=== PATIENT | female | born 1945 | race Caucasian/White ===

== ENCOUNTER 2022-10-08 16:08 | Inpatient (IN) ==
[2022-10-08 16:50] LABS: iSTAT Creatinine 1.2 mg/dl (0.6-1.3); iSTAT Hemoglobin 10.9 g/dl (12.0-16.0); iSTAT Ionized Calcium 1.16 mmol/l (1.12-1.32); iSTAT Potassium 3.5 mmol/L (3.3-5.0)
[2022-10-08 17:06] LABS: Hematocrit (blood only) 30.4 % (37.0-47.0); Hemoglobin 10.3 g/dl (12.0-16.0); Mean Corpuscular Hemoglobin 28.6 pg (25.0-34.0); Mean Corpuscular Hgb Conc 33.9 g/dL (32.0-36.0); Mean Corpuscular Volume 84.4 fL (80.0-100.0); Platelet Count 306 K/uL (130-400); RDW Coefficient of Variation 17.6 % (11.5-14.5); White Blood Count 11.94 K/ul (4.8-10.8)
[2022-10-08 17:17] LABS: Albumin Globulin Ratio 0.7 (0.9-2); Albumin Level 3.3 gm/dl (3.4-5.0); BUN Creatinine Ratio 21.7 (10-20); Bilirubin,Total 0.6 mg/dl (0.2-1.0); Calcium 8.7 mg/dl (8.6-10.3); Creatinine Clr Calc Pharmacy 39.2 ml/min; Est GFR (African American) 49.8 ml/min; Globulin 4.5 gm/dl (2.5-4.0); Magnesium 1.7 mg/dl (1.7-2.4); Potassium 3.5 mmol/L (3.5-5.1); Total Protein 7.8 gm/dl (6.0-8.3)
[2022-10-08 17:23] LABS: Troponin I High Sensitivity 16.9 pg/ml (0-14)
[2022-10-08 17:28] LABS: Partial Thromboplastin Ratio 0.8; Partial Thromboplastin Time 22.8 Seconds (21.0-31.0)
--- NOTE | 2022-10-08 17:38 | Emergency Department Note ---
Impression & Plan Right hand weakness Admit to the [facility] [place] ED Provider Note NAME: JOSE ANDRES AGE: 77 SEX: F ARRIVES VIA: Ambulance INFORMANT: Patient ED PROVIDER(S): Kati Pollard DO CHIEF COMPLAINT: Right arm weakness PLAN: Disposition: Admit to the [facility] [place] Condition: Fair MEDICAL DECISION MAKING: This is a 77-year-old female patient from [facility] who presents to the emergency department with right arm weakness. The patient states that her symptoms started yesterday during lunch. Laboratory studies reveal baseline anemia. The patient was found to be hyponatremic with a sodium of 128. CT scan of the brain and CTA of the brain and neck were unremarkable. Patient will require admission to the hospital for further stroke work-up and gentle rehydration. [facility]. Triage Nursing notes reviewed and agree with them. Vital Signs: reviewed and remarkable for hypertension Differential diagnosis: Acute CVA, TIA, brachial plexopathy ER treatment provided: IV normal saline hydration Diagnostics interpreted by me: ECG: Normal sinus rhythm at a rate of 76 with PVCs. There is a right bundle branch block. There is no ST segment segment elevation or signs of ischemia. Cardiac Monitoring: Normal sinus rhythm at a rate of 80 Laboratory studies: See below Imaging studies: As per radiology CT brain: See report CTA of the head: See report CTA of the neck: See report HPI: 77/F arrives for evaluation of right arm weakness. Patient explains that she noticed her right arm was weak yesterday as she was trying to eat lunch and was unable to coordinate her fork. The staff at the nursing facility became concerned today when they noticed that she was unable to eat. They sent her to the hospital for evaluation. PAST MEDICAL HISTORY:See PAST SURGICAL HISTORY:See Below FAMILY HISTORY:See Below SOCIAL HISTORY:See Below HOME MEDICATIONS:See list ALLERGIES:None VITALS:See Below PHYSICAL EXAMINATION: HEENT: Head - normocephalic and atraumatic. Pupils are equal, round, and reactive to light. Extraocular eye muscles are intact and sclera are anicteric. Ears - bilaterally patent canals with noninjected tympanic membranes and no evidence of hemotympanum. Nose - moist nasal mucosa without discharge. Mouth - moist buccal mucosa. Oropharynx is nonerythematous and there is no tonsillar exudate or edema noted. Neck: Supple; no cervical lymphadenopathy or JVD Heart: Regular rate and rhythm. There is a normal S1 and S2 with no murmurs, clicks, or gallops appreciated. Lungs: Clear to auscultation bilaterally with no wheezes, rales, or rhonchi. Abdomen: Soft, completely nontender, nondistended, with good bowel sounds. There are no palpable pulsatile masses or hepatosplenomegaly. There is no guarding, rigidity, or rebound noted. Extremities: No evidence of cyanosis, clubbing, or edema. There are easily palpable peripheral pulses. Neuro:The patient is awake and alert, oriented to day, time, and place. Muscle strength 5/5 in the left arm and leg. Patient is unable to wood heel finisher with her right hand. She seems to have normal strength within the right shoulder but muscle strength in the right elbow is 3/5. There are no cerebellar signs. ED COURSE: Times/Reassessments: 1620 patient was evaluated in room B5. A complete history and physical was performed. An order was placed for continuous cardiac monitoring. The patient was in a normal sinus rhythm at a rate of 72 Twelve-lead EKG was obtained. The patient will go for CT scan of the brain and CTA of the head and neck. Patient was started on IV normal saline drip. I discussed the case with the [facility] Hospitalist. Kati Pollard DO Past Med/Surg History Medical History (Updated 10/10/22 @ 10:58 by aKti Pollard DO) Acute kidney failure Acute metabolic acidosis Acute respiratory failure Alzheimers disease Anemia Atherosclerotic heart disease of [place] coronary artery without angina pectoris Cellulitis and abscess of right lower extremity DJD (degenerative joint disease), lumbosacral Dysphagia Encephalopathy Exotropia Hyperlipidemia Hypomagnesemia Muscle weakness Partial intestinal obstruction, unspecified as to cause Polyosteoarthritis, unspecified Primary hypertension Sepsis Spondylolisthesis of lumbosacral region Strabismus Type 2 diabetes mellitus UTI (urinary tract infection) Vitamin D deficiency Surgical History (Updated 08/02/22 @ 10:28 by Marie Donis RN) History of appendectomy History of hysterectomy Social History Smoking Status: Never smoker Hx Alcohol Use: No Hx Substance Use: No Preferred Language: Greek Communication Ability: Impaired Quality Control Operator Required: No Beliefs That Will Affect Care: None Current Living Situation: Assisted Feels Safe at Home: Yes Safety Concerns: Feels Safe At This Time Assistive Devices: Walker and Wheelchair Allergies Allergies Allergy/AdvReac Type Severity Reaction Status Date / Time No Known Allergies Allergy Verified 08/02/22 09:38 Home Meds Home Medications Medication Instructions Recorded Confirmed Lactobacillus comb 1 cap PO AC 08/02/22 10/08/22 [id number] 300 million cell-250 mg capsule (Probiotic and Acidophilus) acetaminophen 325 mg tablet 325 mg PO Q4H PRN Pain 08/02/22 10/08/22 amlodipine 5 mg tablet 5 mg PO DAILY 08/02/22 10/08/22 ammonium lactate 12 % topical cream 1 applic topical BID 08/02/22 10/08/22 amoxicillin 875 mg-potassium 1 tab PO BID 08/02/22 10/08/22 clavulanate 125 mg tablet aspirin 81 mg tablet 81 mg PO QAM 08/02/22 10/08/22 bisacodyl 10 mg rectal suppository 10 mg MO DAILY PRN Constipation 08/02/22 10/08/22 (Dulcolax (bisacodyl)) calcium acetate 667 mg tablet 667 mg PO QAM 08/02/22 10/08/22 cholecalciferol (vitamin D3) 25 25 mcg PO QAM 08/02/22 10/08/22 mcg (1,000 unit) capsule (Vitamin D3) cyanocobalamin (vitamin B-12) 500 500 mcg PO QAM 08/02/22 10/08/22 mcg tablet (Vitamin B-12) diclofenac sodium 1 % topical gel 2 g topical QID PRN Pain 08/02/22 10/08/22 ferrous sulfate 325 mg (65 mg 325 mg PO DAILY 08/02/22 10/08/22 iron) tablet gabapentin 100 mg capsule 100 mg PO QAM 08/02/22 10/08/22 gabapentin 100 mg capsule 200 mg PO HS 08/02/22 10/08/22 guaifenesin 100 mg/5 mL oral 200 mg PO Q4H PRN Cough 08/02/22 10/08/22 liquid (Tussin Mucus-Chest Congestion) magnesium hydroxide 400 mg/5 mL 30 ml PO DAILY PRN No bowel 08/02/22 10/08/22 oral suspension (Milk of Magnesia) movement in 3 days sodium phosphates 19 gram-7 118 ml MO DAILY PRN Constipation 08/02/22 10/08/22 gram/118 mL enema (Fleet Enema) famotidine 20 mg tablet 20 mg PO BID 10/08/22 10/08/22 glipizide 5 mg tablet, extended 5 mg PO QAM 10/08/22 10/08/22 release 24 hr ipratropium 0.5 mg-albuterol 3 mg 3 ml inhalation Q4H PRN short of 10/08/22 10/08/22 (2.5 mg base)/3 mL nebulization breath soln metformin 500 mg tablet 500 mg PO BID 10/08/22 10/08/22 ondansetron HCl 4 mg tablet 4 mg PO Q6H PRN nausea 10/08/22 10/08/22 Results & Data (ED) Vital Signs Vital Signs - 24 hr 10/08/22 16:08 10/08/22 17:21 10/08/22 17:22 Temperature 36.9 C Temperature Source Oral Pulse Rate 76 77 78 Pulse Rate from SpO2 Sensor 39 L Pulse Rhythm Regular Pulse Strength Normal Respiratory Rate 35 H 37 H Respiratory Effort / Characteristics Non-Labored Spontaneous Respiratory Depth Normal Respiratory Pattern Regular Blood Pressure 128/70 Blood Pressure Mean 89 Blood Pressure Position Lying Pulse Oximetry 100 100 Oxygen Delivery Method Room Air Sepsis Recent Fever Within 48 Hours No Sepsis New/Unexplained Change in Mental Status No Sepsis Action Taken by Nursing No Action Required 10/08/22 17:30 10/08/22 17:40 10/08/22 17:50 Temperature Temperature Source Pulse Rate 76 75 75 Pulse Rate from SpO2 Sensor 44 L 39 L 54 L Pulse Rhythm Pulse Strength Respiratory Rate 32 H 34 H 36 H Respiratory Effort / Characteristics Respiratory Depth Respiratory Pattern Blood Pressure Blood Pressure Mean Blood Pressure Position Pulse Oximetry 100 99 98 Oxygen Delivery Method Sepsis Recent Fever Within 48 Hours Sepsis New/Unexplained Change in Mental Status Sepsis Action Taken by Nursing 10/08/22 18:00 10/08/22 18:10 10/08/22 18:20 Temperature Temperature Source Pulse Rate 77 76 80 Pulse Rate from SpO2 Sensor 64 73 64 Pulse Rhythm Pulse Strength Respiratory Rate 29 H 34 H 20 Respiratory Effort / Characteristics Respiratory Depth Respiratory Pattern Blood Pressure Blood Pressure Mean Blood Pressure Position Pulse Oximetry 95 99 95 Oxygen Delivery Method Sepsis Recent Fever Within 48 Hours Sepsis New/Unexplained Change in Mental Status Sepsis Action Taken by Nursing 10/08/22 18:21 10/08/22 18:21 10/08/22 18:30 Temperature Temperature Source Pulse Rate 83 Pulse Rate from SpO2 Sensor Pulse Rhythm Pulse Strength Respiratory Rate 16 Respiratory Effort / Characteristics Respiratory Depth Respiratory Pattern Blood Pressure 130/90 133/68 Blood Pressure Mean 103 89 Blood Pressure Position Pulse Oximetry 97 Oxygen Delivery Method Sepsis Recent Fever Within 48 Hours Sepsis New/Unexplained Change in Mental Status Sepsis Action Taken by Nursing 10/08/22 18:30 10/08/22 18:53 10/08/22 19:00 Temperature Temperature Source Pulse Rate 76 79 78 Pulse Rate from SpO2 Sensor 62 Pulse Rhythm Pulse Strength Respiratory Rate 23 25 H 31 H Respiratory Effort / Characteristics Respiratory Depth Respiratory Pattern Blood Pressure Blood Pressure Mean Blood Pressure Position Pulse Oximetry 99 Oxygen Delivery Method Sepsis Recent Fever Within 48 Hours Sepsis New/Unexplained Change in Mental Status Sepsis Action Taken by Nursing 10/08/22 21:26 Temperature Temperature Source Pulse Rate 82 Pulse Rate from SpO2 Sensor Pulse Rhythm Pulse Strength Respiratory Rate Respiratory Effort / Characteristics Respiratory Depth Respiratory Pattern Blood Pressure Blood Pressure Mean Blood Pressure Position Pulse Oximetry Oxygen Delivery Method Sepsis Recent Fever Within 48 Hours Sepsis New/Unexplained Change in Mental Status Sepsis Action Taken by Nursing Laboratory Data 10/08/22 16:30 10/08/22 16:30 Lab Results 10/08/22 10/08/22 10/08/22 Range/Units 16:30 16:30 16:30 WBC 11.94 H (4.8-10.8) K/ul RBC 3.60 L (4.20-5.40) M/uL Hgb 10.3 L (12.0-16.0) g/dl POC Hgb (12.0-16.0) g/dl Hct 30.4 L (37.0-47.0) % POC Hct (37-47) % MCV 84.4 (80.0-100.0) fL MCH 28.6 (25.0-34.0) pg MCHC 33.9 (32.0-36.0) g/dL RDW Std Deviation 54.0 H (36.4-46.3) fL RDW Coeff of Valeri 17.6 H (11.5-14.5) % Plt Count 306 (130-400) K/uL MPV 10.0 (9.4-12.4) fL Immature Gran % (Auto) 9.1 % Neut % (Auto) 63.7 % Lymph % (Auto) 11.7 % Garza % (Auto) 14.2 % Eos % (Auto) 1.0 % Baso % (Auto) 0.3 % Neut # (Auto) 7.59 H (1.40-6.50) K/uL Lymph # (Auto) 1.40 (1.2-3.4) K/uL Garza # (Auto) 1.70 H (0.11-0.59) K/uL Eos # (Auto) 0.12 (0-0.50) K/uL Baso # (Auto) 0.04 (0-0.2) K/uL Immature Gran # (Auto) 1.09 H (0.01-0.20) K/uL Ovalocytes 1+ Echinocytes 1+ Acanthocytes (Spur) 1+ PT 11.0 (9.0-12.0) Seconds INR 1.0 (0.9-1.1) APTT 22.8 (21.0-31.0) Seconds PTT Ratio 0.8 POC Sodium (135-144) mmol/L Sodium 128 L (136-145) mmol/L POC Potassium (3.3-5.0) mmol/L Potassium 3.5 (3.5-5.1) mmol/L POC Chloride (101-112) mmol/L Chloride 97 L (98-107) mmol/L Carbon Dioxide 22 (21-32) mmol/L POC Total CO2 (24-31) mmol/L Anion Gap 9 (3-11) POC Anion Gap (16-25) mmol/L POC BUN (7-18) mg/dl BUN 26 H (6-23) mg/dl Creatinine 1.20 (0.6-1.2) mg/dl POC Creatinine (0.6-1.3) mg/dl Est Cr Clr Drug Dosing 39.2 ml/min Est GFR ( Amer) 49.8 ml/min Est GFR (Non-Af Amer) 43.0 ml/min BUN/Creatinine Ratio 21.7 H (10-20) Glucose 109 H (70-99(Fasting)) mg/dl POC Glucose (other) (70-99) mg/dl Calcium 8.7 (8.6-10.3) mg/dl POC Ioniz Calcium Jada (1.12-1.32) mmol/l Magnesium 1.7 (1.7-2.4) mg/dl Total Bilirubin 0.6 (0.2-1.0) mg/dl AST 15 (13-39) U/L ALT 11 (7-52) U/L Alkaline Phosphatase 69 (34-104) U/L Troponin I High Sens 16.9 H (0-14) pg/ml Total Protein 7.8 (6.0-8.3) gm/dl Albumin 3.3 L (3.4-5.0) gm/dl Globulin 4.5 H (2.5-4.0) gm/dl Albumin/Globulin Ratio 0.7 L (0.9-2) SARS-CoV-2, RNA, NAAT (NEGATIVE) Blood Type Antibody Screen 10/08/22 10/08/22 10/08/22 Range/Units 16:37 17:09 20:21 WBC (4.8-10.8) K/ul RBC (4.20-5.40) M/uL Hgb (12.0-16.0) g/dl POC Hgb 10.9 L (12.0-16.0) g/dl Hct (37.0-47.0) % POC Hct 32 L (37-47) % MCV (80.0-100.0) fL MCH (25.0-34.0) pg MCHC (32.0-36.0) g/dL RDW Std Deviation (36.4-46.3) fL RDW Coeff of Valeri (11.5-14.5) % Plt Count (130-400) K/uL MPV (9.4-12.4) fL Immature Gran % (Auto) % Neut % (Auto) % Lymph % (Auto) % Garza % (Auto) % Eos % (Auto) % Baso % (Auto) % Neut # (Auto) (1.40-6.50) K/uL Lymph # (Auto) (1.2-3.4) K/uL Garza # (Auto) (0.11-0.59) K/uL Eos # (Auto) (0-0.50) K/uL Baso # (Auto) (0-0.2) K/uL Immature Gran # (Auto) (0.01-0.20) K/uL Ovalocytes Echinocytes Acanthocytes (Spur) PT (9.0-12.0) Seconds INR (0.9-1.1) APTT (21.0-31.0) Seconds PTT Ratio POC Sodium 131 L (135-144) mmol/L Sodium (136-145) mmol/L POC Potassium 3.5 (3.3-5.0) mmol/L Potassium (3.5-5.1) mmol/L POC Chloride 97 L (101-112) mmol/L Chloride (98-107) mmol/L Carbon Dioxide (21-32) mmol/L POC Total CO2 24 (24-31) mmol/L Anion Gap (3-11) POC Anion Gap 13.0 L (16-25) mmol/L POC BUN 27 H (7-18) mg/dl BUN (6-23) mg/dl Creatinine (0.6-1.2) mg/dl POC Creatinine 1.2 (0.6-1.3) mg/dl Est Cr Clr Drug Dosing ml/min Est GFR ( Amer) ml/min Est GFR (Non-Af Amer) ml/min BUN/Creatinine Ratio (10-20) Glucose (70-99(Fasting)) mg/dl POC Glucose (other) 120 H (70-99) mg/dl Calcium (8.6-10.3) mg/dl POC Ioniz Calcium Jada 1.16 (1.12-1.32) mmol/l Magnesium (1.7-2.4) mg/dl Total Bilirubin (0.2-1.0) mg/dl AST (13-39) U/L ALT (7-52) U/L Alkaline Phosphatase (34-104) U/L Troponin I High Sens (0-14) pg/ml Total Protein (6.0-8.3) gm/dl Albumin (3.4-5.0) gm/dl Globulin (2.5-4.0) gm/dl Albumin/Globulin Ratio (0.9-2) SARS-CoV-2, RNA, NAAT NEGATIVE (NEGATIVE) Blood Type A Positive Antibody Screen NEGATIVE Administered Medications Amlodipine Besylate (Amlodipine Besylate 5 Mg Tab) 5 mg PO DAILY JOSR Stop: 11/08/22 08:59 Last Admin: 10/10/22 08:12 Dose: 5 mg Documented By: Admin: 10/09/22 09:19 Dose: 5 mg Documented By: SARAH Amoxicillin/Clavulanate Potassium (Amoxicillin/Clavulanate 875 Mg Tab) 1 tab PO BID [facility] Stop: 10/19/22 08:59 Last Admin: 10/10/22 08:14 Dose: 1 tab Documented By: Admin: 10/09/22 20:55 Dose: 1 tab Documented By: Admin: 10/09/22 09:19 Dose: 1 tab Documented By: SARAH Aspirin (Aspirin 81 Mg Ectab) 81 mg PO [facility] Stop: 11/08/22 08:59 Last Admin: 10/10/22 08:13 Dose: 81 mg Documented By: Admin: 10/09/22 09:20 Dose: 81 mg Documented By: SARAH Calcium Acetate (Calcium Acetate 667 Mg Cap/Tab) 667 mg PO [facility] Stop: 11/08/22 08:59 Last Admin: 10/10/22 08:13 Dose: 667 mg Documented By: Admin: 10/09/22 09:19 Dose: 667 mg Documented By: SARAH Clopidogrel Bisulfate (Clopidogrel Bisulfate 75 Mg Tab) 75 mg PO [facility] Stop: 11/08/22 08:59 Last Admin: 10/10/22 08:13 Dose: 75 mg Documented By: Admin: 10/09/22 09:19 Dose: 75 mg Documented By: SARAH Cyanocobalamin (Cyanocobalamin (B-12) 500 Mcg Tablet) 500 mcg PO [facility] Stop: 11/08/22 08:59 Last Admin: 10/10/22 08:13 Dose: 500 mcg Documented By: Admin: 10/09/22 09:20 Dose: 500 mcg Documented By: SARAH Famotidine (Famotidine 20 Mg Tab) 20 mg PO BID [facility] Stop: 11/08/22 08:59 Last Admin: 10/10/22 08:16 Dose: 20 mg Documented By: Admin: 10/09/22 20:56 Dose: 20 mg Documented By: Admin: 10/09/22 09:19 Dose: 20 mg Documented By: SARAH Ferrous Sulfate (Ferrous Sulfate 325 Mg Tab) 325 mg PO DAILY [facility] Stop: 11/08/22 08:59 Last Admin: 05/24/23 08:13 Dose: 325 mg Documented By: Admin: 10/09/22 09:19 Dose: 325 mg Documented By: SARAH Gabapentin (Gabapentin 100 Mg Cap) 200 mg PO HS JOSR Stop: 11/08/22 20:59 Last Admin: 10/09/22 20:57 Dose: 200 mg Documented By: CP Gabapentin (Gabapentin 100 Mg Cap) 100 mg PO QAM JOSR Stop: 11/08/22 08:59 Last Admin: 10/10/22 08:14 Dose: 100 mg Documented By: Admin: 10/09/22 09:20 Dose: 100 mg Documented By: SARAH Heparin Sodium (Porcine) (Heparin Sod 5,000 Unit/0.5 Ml Vial) 5,000 units SQ Q12 JOSR Stop: 11/08/22 20:59 Last Admin: 10/10/22 08:14 Dose: 5,000 units Documented By: Admin: 10/09/22 20:57 Dose: 5,000 units Documented By: IRIS Lactic Acid (Ammonium Lactate 12% Lotion 225 Gm Btl) 1 gm EXT BID JOSR Stop: 11/08/22 08:59 Last Admin: 10/10/22 08:16 Dose: 1 gm Documented By: Admin: 10/09/22 20:54 Dose: 1 gm Documented By: Admin: 10/09/22 09:18 Dose: 1 gm Documented By: SARAH Lactobacillus Acidophilus (Advanced Probiotic 1250 Mg Capsule) 2 cap PO AC [facility] Stop: 11/08/22 07:29 Last Admin: 10/10/22 08:12 Dose: 2 cap Documented By: Admin: 10/09/22 17:13 Dose: Not Given Documented By: Admin: 10/09/22 12:38 Dose: 2 cap Documented By: Admin: 10/09/22 07:31 Dose: 2 cap Documented By: SARAH Vitamin D (Cholecalciferol 1,000 Units 25 Mcg Tab) 1,000 units PO QAM [facility] Stop: 11/08/22 08:59 Last Admin: 10/10/22 08:14 Dose: 1,000 units Documented By: Admin: 10/10/22 08:13 Dose: 1,000 units Documented By: Admin: 10/09/22 09:19 Dose: 1,000 units Documented By: NMS Discontinued Medications Gadobutrol (Gadobutrol 65ml Vial) 7 ml IV ONCE ONE Stop: 10/09/22 02:15 Last Admin: 10/09/22 02:14 Dose: 7 ml Documented By: EMMY Sodium Chloride (Nss) 500 mls @ 999 mls/hr IV .Q31M ONE Stop: 10/08/22 20:21 Last Infusion: 10/08/22 21:16 Dose: 0 mls/hr Documented By: Admin: 10/08/22 20:19 Dose: 999 mls/hr Documented By: DENTURE PACKER Sodium Chloride (Nss 1000ml) 1,000 mls @ 80 mls/hr IV .[id number] JOSR Stop: 10/09/22 12:51 Last Infusion: 10/09/22 12:09 Dose: 0 mls/hr Documented By: Admin: 10/09/22 01:12 Dose: 80 mls/hr Documented By: STANTON Magnesium Sulfate/Dextrose (Magnesium Sulfate / D5w) 1 gm in 100 mls @ 50 mls/hr IV ONE ONE Stop: 10/09/22 10:21 Last Infusion: 10/09/22 11:11 Dose: 0 mls/hr Documented By: Admin: 10/09/22 09:18 Dose: 50 mls/hr Documented By: SARAH Sodium Chloride (Nss) 500 mls @ 50 mls/hr IV .Q10H ONE Stop: 10/10/22 02:12 Last Infusion: 10/10/22 03:22 Dose: 0 mls/hr Documented By: Admin: 10/09/22 17:13 Dose: 50 mls/hr Documented By: MELONIE Ioversol (Optiray 320 500ml) 114 ml IV ONCE ONE Stop: 10/08/22 18:52 Last Admin: 10/08/22 18:52 Dose: 114 ml Documented By: ROCHELLE Potassium Chloride (Potassium Chloride Crtab 20 Meq Tabcr) 40 meq PO ONE ONE Stop: 10/09/22 08:07 Last Admin: 10/09/22 09:20 Dose: 40 meq Documented By: SARAH Imaging Data Radiologist's Impression: Head CT 10/08/22 16:44 Exam(s): CT HEAD Without Contrast EXAM: CT Head Without Intravenous Contrast CLINICAL HISTORY: Reason for exam: neuro deficit, acute stroke suspected. TECHNIQUE: Axial computed tomography images of the head/brain without intravenous contrast. CTDI is 31.3 mGy and DLP is 512.02 mGy-cm. Automated exposure control was utilized for the study. A dose lowering technique was utilized adhering to the principles of ALARA. COMPARISON: No relevant prior studies available. FINDINGS: Brain: No hemorrhage. No apparent acute cortical infarct. No mass lesion or midline shift. Involutional changes with small vessel disease. Ventricles: No hydrocephalus. Bones/joints: No acute fracture. Soft tissues: Unremarkable. Sinuses: Mucosal thickening in the bilateral maxillary sinuses. Fluid level in the sphenoid and left maxillary sinuses. Mastoid air cells: No mastoid effusion. Orbits: Unremarkable as visualized. IMPRESSION: No acute intracranial process. MRI is more sensitive for ischemia if clinically warranted. Electronically signed by: Carmen Costello M.D. 10/08/22 19:23 PM Head CTA 10/08/22 16:44 Exam(s): CTA HEAD With Contrast IV Amt: 114ml optiray 320 EXAM: CT Angiography Head With Intravenous Contrast CLINICAL HISTORY: Reason for exam: neuro deficit, acute stroke suspected. TECHNIQUE: Axial computed tomographic angiography images of the head with intravenous contrast. CTDI is 31.3 mGy and DLP is 512.02 mGy-cm. Automated exposure control was utilized for the study. A dose lowering technique was utilized adhering to the principles of ALARA. MIP reconstructed images were created and reviewed. CONTRAST: Patient received 114ml optiray 320 of IV contrast COMPARISON: No relevant prior studies available. FINDINGS: Diffuse atherosclerotic changes. Right internal carotid artery: Internal carotid is patent with no significant stenosis. No aneurysm. Right anterior cerebral artery: No occlusion or significant stenosis. No aneurysm. Right middle cerebral artery: No occlusion or significant stenosis. No aneurysm. Right posterior cerebral artery: No occlusion or significant stenosis. No aneurysm. Right vertebral artery: No significant stenosis. No occlusion. Left internal carotid artery: Internal carotid is patent with no significant stenosis. No aneurysm. Left anterior cerebral artery: No occlusion or significant stenosis. No aneurysm. Left middle cerebral artery: No occlusion or significant stenosis. No aneurysm. Left posterior cerebral artery: No occlusion. Some stenosis identified.. No aneurysm. Left vertebral artery: Unremarkable as visualized. Basilar artery: No occlusion or significant stenosis. No aneurysm. Sinuses: Sinus disease as previously reported. IMPRESSION: No essential occlusions related to the [place]. Electronically signed by: Carmen Costello M.D. 10/08/22 19:32 PM Neck CTA 10/08/22 16:44 Exam(s): CTA NECK With Contrast IV Amt: 114ml optiray 320 EXAM: CT Angiography Neck With Intravenous Contrast CLINICAL HISTORY: Reason for exam: neuro deficit, acute stroke suspected. TECHNIQUE: Routine carotid CT angiography protocol was performed with intravenous contrast. NASCET criteria using the distal ICAs for comparison were used for evaluation of stenoses. CTDI is 12.85 mGy and DLP is 409.96 mGy-cm. Automated exposure control was utilized for the study. A dose lowering technique was utilized adhering to the principles of ALARA. MIP reconstructed images were created and reviewed. CONTRAST: Patient received 114ml optiray 320 of IV contrast COMPARISON: None. FINDINGS: VASCULATURE: Right common carotid artery: No significant stenosis. No dissection or occlusion. Right internal carotid artery: Internal carotid is patent with no significant stenosis. No aneurysm. Right vertebral artery: No significant stenosis. No occlusion. Left common carotid artery: No significant stenosis. No occlusion. Left internal carotid artery: Internal carotid is patent with no significant stenosis. No aneurysm. Left vertebral artery: Unremarkable. No occlusion or significant stenosis. No dissection. NECK: Bones/joints: No acute fracture. Sinuses: Sinus disease as previously described. Thyroid: Small low-attenuation focus in left lobe of the thyroid gland. Lung apices: Horner of markings or spiculated opacity measuring 5 mm in the left lung apex. CAROTID STENOSIS REFERENCE USING NASCET CRITERIA: % ICA stenosis = (1 - narrowest ICA diameter/diameter of distal cervical ICA) x 100. Mild - <50% stenosis. Moderate - 50-69% stenosis. Severe - 70-94% stenosis. Near occlusion - 95-99% stenosis. Occluded - 100% stenosis. IMPRESSION: No occlusion or high-grade stenosis. Electronically signed by: Carmen Costello M.D. 10/08/22 19:37 PM Discharge Plan Visit Data Chief Complaint: Neuro Symptoms/Deficit Stated Complaint: RIGHT HAND TROUBLES ED Provider: Kati Pollard Discharge Problem: Right hand weakness Patient Disposition: Admitted As Inpatient Discharge Instructions Interventions: ED Discharge Assessment Last Done: 10/09/22 00:21
[2022-10-08 18:04] LABS: Acanthocytes 1+; Basophils # (auto) 0.04 K/uL (0-0.2); Basophils % (auto) 0.3 %; Echinocytes 1+; Eosinophils # (auto) 0.12 K/uL (0-0.50); Immature Granulocytes # (auto) 1.09 K/uL (0.01-0.20); Immature Granulocytes % (auto) 9.1 %; Lymphocytes % (auto) 11.7 %; Monocytes % (auto) 14.2 %; Neutrophils # (auto) 7.59 K/uL (1.40-6.50); Neutrophils % (auto) 63.7 %; Ovalocytes 1+
[2022-10-08] MEDS ORDERED: OPTIRAY 320 500ml IV ONE (18:51)
--- NOTE | 2022-10-08 19:24 | CT Scan Report ---
Exam(s): CT HEAD Without Contrast EXAM: CT Head Without Intravenous Contrast CLINICAL HISTORY: Reason for exam: neuro deficit, acute stroke suspected. TECHNIQUE: Axial computed tomography images of the head/brain without intravenous contrast. CTDI is 31.3 mGy and DLP is 512.02 mGy-cm. Automated exposure control was utilized for the study. A dose lowering technique was utilized adhering to the principles of ALARA. COMPARISON: No relevant prior studies available. FINDINGS: Brain: No hemorrhage. No apparent acute cortical infarct. No mass lesion or midline shift. Involutional changes with small vessel disease. Ventricles: No hydrocephalus. Bones/joints: No acute fracture. Soft tissues: Unremarkable. Sinuses: Mucosal thickening in the bilateral maxillary sinuses. Fluid level in the sphenoid and left maxillary sinuses. Mastoid air cells: No mastoid effusion. Orbits: Unremarkable as visualized. IMPRESSION: No acute intracranial process. MRI is more sensitive for ischemia if clinically warranted. Electronically signed by: Carmen Costello M.D. 10/08/22 19:23 PM
--- NOTE | 2022-10-08 19:33 | CT Scan Report ---
Exam(s): CTA HEAD With Contrast IV Amt: 114ml optiray 320 EXAM: CT Angiography Head With Intravenous Contrast CLINICAL HISTORY: Reason for exam: neuro deficit, acute stroke suspected. TECHNIQUE: Axial computed tomographic angiography images of the head with intravenous contrast. CTDI is 31.3 mGy and DLP is 512.02 mGy-cm. Automated exposure control was utilized for the study. A dose lowering technique was utilized adhering to the principles of ALARA. MIP reconstructed images were created and reviewed. CONTRAST: Patient received 114ml optiray 320 of IV contrast COMPARISON: No relevant prior studies available. FINDINGS: Diffuse atherosclerotic changes. Right internal carotid artery: Internal carotid is patent with no significant stenosis. No aneurysm. Right anterior cerebral artery: No occlusion or significant stenosis. No aneurysm. Right middle cerebral artery: No occlusion or significant stenosis. No aneurysm. Right posterior cerebral artery: No occlusion or significant stenosis. No aneurysm. Right vertebral artery: No significant stenosis. No occlusion. Left internal carotid artery: Internal carotid is patent with no significant stenosis. No aneurysm. Left anterior cerebral artery: No occlusion or significant stenosis. No aneurysm. Left middle cerebral artery: No occlusion or significant stenosis. No aneurysm. Left posterior cerebral artery: No occlusion. Some stenosis identified.. No aneurysm. Left vertebral artery: Unremarkable as visualized. Basilar artery: No occlusion or significant stenosis. No aneurysm. Sinuses: Sinus disease as previously reported. IMPRESSION: No essential occlusions related to the [place]. Electronically signed by: Carmen Costello M.D. 10/08/22 19:32 PM
--- NOTE | 2022-10-08 19:37 | CT Scan Report ---
Exam(s): CTA NECK With Contrast IV Amt: 114ml optiray 320 EXAM: CT Angiography Neck With Intravenous Contrast CLINICAL HISTORY: Reason for exam: neuro deficit, acute stroke suspected. TECHNIQUE: Routine carotid CT angiography protocol was performed with intravenous contrast. NASCET criteria using the distal ICAs for comparison were used for evaluation of stenoses. CTDI is 12.85 mGy and DLP is 409.96 mGy-cm. Automated exposure control was utilized for the study. A dose lowering technique was utilized adhering to the principles of ALARA. MIP reconstructed images were created and reviewed. CONTRAST: Patient received 114ml optiray 320 of IV contrast COMPARISON: None. FINDINGS: VASCULATURE: Right common carotid artery: No significant stenosis. No dissection or occlusion. Right internal carotid artery: Internal carotid is patent with no significant stenosis. No aneurysm. Right vertebral artery: No significant stenosis. No occlusion. Left common carotid artery: No significant stenosis. No occlusion. Left internal carotid artery: Internal carotid is patent with no significant stenosis. No aneurysm. Left vertebral artery: Unremarkable. No occlusion or significant stenosis. No dissection. NECK: Bones/joints: No acute fracture. Sinuses: Sinus disease as previously described. Thyroid: Small low-attenuation focus in left lobe of the thyroid gland. Lung apices: [place] of markings or spiculated opacity measuring 5 mm in the left lung apex. CAROTID STENOSIS REFERENCE USING NASCET CRITERIA: % ICA stenosis = (1 - narrowest ICA diameter/diameter of distal cervical ICA) x 100. Mild - <50% stenosis. Moderate - 50-69% stenosis. Severe - 70-94% stenosis. Near occlusion - 95-99% stenosis. Occluded - 100% stenosis. IMPRESSION: No occlusion or high-grade stenosis. Electronically signed by: Carmen Costello M.D. 10/08/22 19:37 PM
[2022-10-08] MEDS ORDERED: SODIUM CHLORIDE 0.9% 500 ML IV ONE (19:51)
[2022-10-09] MEDS ORDERED: PHARMACIST DISCHARGE MED REC CONSULT PRN (00:22)
[2022-10-09] MEDS ORDERED: SODIUM CHLORIDE 0.9% 1000ML 1,000 ML IV SCH (00:22)
[2022-10-09] MEDS ORDERED: ACETAMINOPHEN 325 MG TAB PO PRN (00:22)
[2022-10-09] MEDS ORDERED: NITROGLYCERIN SL 0.4 MG/TAB TAB SL PRN (00:22)
[2022-10-09] MEDS ORDERED: POLYETHYLENE (MIRALAX) 17 GM PACK PO PRN (00:22)
[2022-10-09] MEDS ORDERED: bisacodyL 10 MG SUPP PR PRN (00:22)
[2022-10-09] MEDS ORDERED: ALBUT/IPRATROP 3MG/0.5MG NEB 3 ML VIAL INH PRN (00:22)
[2022-10-09] MEDS ORDERED: MAGNESIUM HYDROXIDE SUSP 30 ML UDC PO PRN (00:22)
[2022-10-09] MEDS ORDERED: DICLOFENAC SOD 1% GEL 100 GM TUBE EXT PRN (00:22)
[2022-10-09] MEDS ORDERED: guaiFENesin SUGAR FREE 200 MG/10 ML UDC PO PRN (00:39)
--- NOTE | 2022-10-09 01:08 | History and Physical Report ---
DATE OF ADMISSION: 10/08/2022. CHIEF COMPLAINT: Right hand weakness. HISTORY OF PRESENT ILLNESS: A 77-year-old female with past medical history significant for type 2 diabetes, history of ovarian cancer, hyperlipidemia, hypomagnesemia, hypokalemia, hypertension, CAD, right bundle-branch block, vitamin B12 deficiency, slow transit constipation, degenerative disk disease, osteoarthritis, neuromuscular weakness, moderate late-onset Alzheimer's dementia without behavioral disturbance, myelodysplastic disease, anemia of chronic kidney disease, history of MRSA infection, strabismus, esotropia of right eye, history of COVID-19, who lives at [facility] and presents with right hand weakness since yesterday night and today she could not use a spoon to eat. As per [facility], it looks like last well known was yesterday night. Was brought in because of the right hand weakness. The patient is alert and oriented to name and place, could tell her date of , denies any headache. No blurred visions. Denies any earache, no runny nose, no sore throat, no difficulty swallowing. No cough, no fevers, no chest pain. She had some chest pain earlier, but that is resolved now. No shortness of breath, no nausea, no abdominal pain. Normal bowel and bladder movements. She says that she ambulates with a walker. She eats soft food. Tried to reach out to her daughter and also [facility], but not able to at this time ALLERGIES: No known drug allergies. PAST MEDICAL HISTORY: As mentioned above. PAST SURGICAL HISTORY: Appendectomy, total abdominal hysterectomy with removal of tubes. MEDICATIONS: The patient is on Tylenol 325 mg p.o. q. 4 hours p.r.n., amlodipine 5 mg p.o. daily, ammonium lactate 1 application topical b.i.d., Augmentin 1 tablet p.o. b.i.d., aspirin 81 mg p.o. a.m., Dulcolax 10 mg per rectum daily p.r.n., calcium acetate 667 mg p.o. a.m., vitamin D 25 mcg p.o. daily, vitamin B12 500 mcg p.o. daily, diclofenac sodium 2 g topical q.i.d. p.r.n., famotidine 20 mg p.o. b.i.d., ferrous sulfate 325 mg p.o. daily, gabapentin 200 mg p.o. at bedtime, gabapentin 100 mg p.o. a.m., glipizide 5 mg p.o. a.m., guaifenesin 200 mg p.o. q. 4 hours p.r.n., DuoNebs q. 4 hours p.r.n., lactobacillus 1 tablet p.o. before meals, metformin 500 mg p.o. b.i.d., Zofran 4 mg p.o. q. 6 hours p.r.n., Fleet enema daily p.r.n. FAMILY HISTORY: Significant for mother had cancer; father had diabetes; father had heart disorder; mother had heart disorder. SOCIAL HISTORY: No smoking, no alcohol, no drug use. REVIEW OF SYSTEMS: As per HPI. Rest of the review of systems is negative. PHYSICAL EXAMINATION: GENERAL: The patient is of moderate build, not in acute distress. VITAL SIGNS: Temperature 36.9, pulse 82, respiratory rate 25, blood pressure 133/68, oxygen 99% on room air. HEENT: Pupils equal, round and reactive to light. No facial droop. Oral mucosa moist. NECK: No JVD, no neck masses. CARDIOVASCULAR: S1 and S2 heard. Regular rate and rhythm. No murmur, no gallop. RESPIRATORY SYSTEM: Normal AP diameter. No accessory muscle use. No wheezing or crackles. ABDOMEN: Soft, bowel sounds present, nontender, no distention. CENTRAL NERVOUS SYSTEM: Alert and oriented to name and place. Could tell her date of . Speech is clear. No facial droop. Hand digester capper is less, decreased on the right hand digester capper. Difficult to lift her right upper extremity and can lift and hold lower extremity. could not do coordination of movements. Sensation is intact. EXTREMITIES: No edema, no erythema. LABORATORY DATA: WBC 11.9, hemoglobin 10.3, hematocrit 30.4, platelets 306. PT 11, INR 1, APTT 22.8. Sodium 128, potassium 3.5, chloride 97, CO2 of 22, BUN 26, creatinine of 1.2, serum glucose 109, calcium 8.7, magnesium 1.7, total bilirubin 0.6, AST 15, ALT 11, alkaline phosphatase 69. Troponin I high sensitivity 16.9. SARS-CoV-2 rapid test negative. IMAGING DATA: CTA neck, no occlusion or high-grade stenosis. CTA head, no essential occlusion related to the [place]. CTA of the head without contrast, no acute findings. EKG: Sinus rhythm with frequent PVCs at the rate of 76, no previous EKGs available, left axis deviation, right bundle-branch block. ASSESSMENT AND PLAN: This is a 77-year-old female who presents with right hand weakness. 1. Right hand weakness since yesterday. Initial workup with CT scan of the head and CTA of the head and neck unremarkable. We will do a full stroke workup with MRI, echo, speech evaluation, PT/OT, and neuro evaluation in the a.m. The patient to be on clear liquid diet until seen by speech. The patient is already on aspirin. Will follow the lipid profile and add Plavix for now. Await neuro input. Closely monitor in the tele floor. 2. Hyponatremia: Sodium of 128, getting gentle fluids. Follow the repeat labs. Follow serum osmolality, urine osmolality, serum sodium, and urine sodium levels. Consult neurology in the a.m. 3. Recent bronchitis and urinary tract infection: Recently started on Augmentin. It looks like she did not tolerate the doxycycline in the [facility]. Doxy caused some GI upset, so she was placed on Augmentin. Augmentin started on 10/06/2022, end date is 10/13/2022, which will be continued. 4. History of moderate late-onset Alzheimer's dementia without behavioral disturbances. Monitor for any delirium. 5. Type 2 diabetes: Hold her home metformin and glipizide. Will place on insulin sliding scale. Follow the blood sugars. 6. History of myelodysplastic disease: Following with hematology/oncology. Continue ferrous sulfate. 7. Chronic kidney disease stage III: Creatinine of 1.2, will follow the labs. 8. Anemia of chronic kidney disease: Presents with hemoglobin of 10.3. Follows with hem/onc. Continue oral iron and B12 supplements. 9. Deep venous thrombosis prophylaxis: Sequential compression devices for now. DISPOSITION: Closely monitor in the tele floor. Level 1 full code. Expect to discharge home and follow with family doctor. Job ID: [id number] [facility]
[2022-10-09] MEDS ORDERED: GADOBUTROL 65ML VIAL IV ONE (02:14)
--- NOTE | 2022-10-09 03:05 | Magnetic Resonance Report ---
Exam(s): MRI HEAD W/WO Contrast IV Amt: 7cc gadavist EXAM: MR Head Without and With Intravenous Contrast CLINICAL HISTORY: Reason for exam: stroke like symptoms. TECHNIQUE: Magnetic resonance images of the head/brain without and with intravenous contrast in multiple planes. CONTRAST: Patient received 7cc gadavist of IV contrast COMPARISON: 10/08/2022. FINDINGS: Brain: Moderate to severe generalized brain atrophy. Scattered areas of increased signal within the deep white matter compatible with microangiopathic white matter disease. No restricted diffusion abnormality to suggest acute stroke. No intracranial hemorrhage. Ventricles: Nonspecific ventriculomegaly. Bones/joints: Unremarkable. Soft tissues: Unremarkable. Normal enhancement of intracranial structures following contrast administration with no distinct intracranial lesion. Sinuses: Mucosal thickening involving the bilateral maxillary sinuses with air-fluid level on the left and enhancement concerning for acute on chronic sinusitis. Mucosal thickening of bilateral mastoids and frontal sinuses. Mastoid air cells: Unremarkable as visualized. No mastoid effusion. Orbits: Unremarkable as visualized. IMPRESSION: 1. Moderate to severe generalized brain atrophy along with microangiopathic white matter disease. 2. No acute stroke or intracranial hemorrhage. No enhancing intracranial lesions seen. 3. Sequela pansinusitis as described. Electronically signed by: Fatuma Delatorre MD 10/09/22 03:04 AM
[2022-10-09 04:51] LABS: Calcium 7.9 mg/dl (8.6-10.3); Potassium 3.1 mmol/L (3.5-5.1)
[2022-10-09 04:57] LABS: BUN Creatinine Ratio 20.9 (10-20); Chol HDL Ratio 2.6 (0-5); Creatinine Clr Calc Pharmacy 51.7 ml/min; Est GFR (African American) 69.5 ml/min
[2022-10-09 05:09] LABS: Basophils # (auto) 0.04 K/uL (0-0.2); Basophils % (auto) 0.3 %; Echinocytes 2+; Eosinophils # (auto) 0.11 K/uL (0-0.50); Eosinophils % (auto) 0.9 %; Hematocrit (blood only) 27.5 % (37.0-47.0); Hemoglobin 9.3 g/dl (12.0-16.0); Immature Granulocytes # (auto) 0.73 K/uL (0.01-0.20); Immature Granulocytes % (auto) 5.7 %; Lymphocytes # (auto) 0.89 K/uL (1.2-3.4); Lymphocytes % (auto) 6.9 %; Mean Corpuscular Hemoglobin 28.1 pg (25.0-34.0); Mean Corpuscular Hgb Conc 33.8 g/dL (32.0-36.0); Mean Corpuscular Volume 83.1 fL (80.0-100.0); Mean Platelet Volume 9.8 fL (9.4-12.4); Monocytes # (auto) 1.47 K/uL (0.11-0.59); Monocytes % (auto) 11.5 %; Neutrophils # (auto) 9.59 K/uL (1.40-6.50); Neutrophils % (auto) 74.7 %; Platelet Count 238 K/uL (130-400); Platelet Estimate Normal (Normal); RDW Coefficient of Variation 17.4 % (11.5-14.5); RDW Standard Deviation 52.6 fL (36.4-46.3); Red Blood Count 3.31 M/uL (4.20-5.40); White Blood Count 12.83 K/ul (4.8-10.8)
[2022-10-09] MEDS: ADVANCED PROBIOTIC 1250 MG CAPSULE PO SCH ×3 (07:31→17:13)
[2022-10-09 08:00] LABS: Estimated Average Glucose 171 mg/dl; Hemoglobin A1C 7.6 % (4.5-5.6)
[2022-10-09] MEDS ORDERED: POTASSIUM CHLORIDE CRTAB 20 MEQ TABCR PO ONE (08:06)
[2022-10-09] MEDS ORDERED: MAGNESIUM SULFATE / D5W 1 GM/100 ML BAG IV ONE (08:22)
--- NOTE | 2022-10-09 09:05 | Electrocardiogram Report ---
Test Reason : Blood Pressure : / mmHG Vent. Rate : 076 BPM Atrial Rate : 076 BPM P-R Int : 180 ms QRS Dur : 148 ms QT Int : 448 ms P-R-T Axes : 011 -74 006 degrees QTc Int : 504 ms Sinus rhythm with frequent Premature ventricular complexes Left axis deviation Right bundle branch block Inferior infarct , age undetermined Abnormal ECG No previous ECGs available Confirmed by Kyler Bro ([id number]) on 10/09/2022 9:05:08 AM Referred By: REFERRED SELF Confirmed By:Kyler Bro
[2022-10-09] MEDS: AMMONIUM LACTATE 12% LOTION 225 GM BTL EXT SCH ×2 (09:18→20:54)
[2022-10-09] MEDS: CHOLECALCIFEROL 1,000 UNITS 25 MCG TAB PO SCH (09:19)
[2022-10-09] MEDS: FERROUS SULFATE 325 MG TAB PO SCH (09:19)
[2022-10-09] MEDS: CALCIUM ACETATE 667 MG CAP/TAB PO SCH (09:19)
[2022-10-09] MEDS: CLOPIDOGREL BISULFATE 75 MG TAB PO SCH (09:19)
[2022-10-09] MEDS: FAMOTIDINE 20 MG TAB PO SCH ×2 (09:19→20:56)
[2022-10-09] MEDS: amLODIPine BESYLATE 5 MG TAB PO SCH (09:19)
[2022-10-09] MEDS: AMOXICILLIN/CLAVULANATE 875 MG TAB PO SCH ×2 (09:19→20:55)
[2022-10-09] MEDS: CYANOCOBALAMIN (B-12) 500 MCG TABLET PO SCH (09:20)
[2022-10-09] MEDS: GABAPENTIN 100 MG CAP PO SCH (09:20)
[2022-10-09] MEDS: ASPIRIN 81 MG ECTAB PO SCH (09:20)
--- NOTE | 2022-10-09 09:57 | Neurology Consultation ---
Date of Consultation October 09, 2022 Assessment & Plan (1) Acute radial nerve palsy of left upper extremity: Presentation and exam consistent with an isolated L radial nerve palsy. This is not a stroke. We do not recommend any further testing or change in medication. She will benefit from OT and a neutral wrist splint. EMG in 6 weeks if symptoms do not improve to help guide prognosis. Telehealth Consultation Telehealth Information Telehealth Information: I performed this visit using a real-time telehealth connection between my location and the patients location ([facility]). After conne cting through interactive tele-video, patient was identified by name and date of and/or wristband check.Patient (or authorized healthcare motor vehicle field representative) was informed that this was a telemedicine visit and it was being conducted confidentially over secure lines. My office door was closed and no one else was present in the room with me.Patient (or authorized healthcare motor vehicle field representative) provided consent to proceed with the visit, expressed an understanding of privacy and security of the telemedicine visit, and gave permission to have a hospital motor vehicle field representative in the room in order to assist with the visit and to conduct portions of the visit, as needed. I informed the patient (or authorized healthcare motor vehicle field representative) that I reviewed their record and presented the opportunity for them to ask any questions regarding the visit today. The patient agreed to participate. History of Present Illness Reason for Consultation: Left hand weakness Requesting Physician: Dr. Herrera Attending Physician: Jerrell Herrera MD History of Present Illness Laxmi Barbosa is a 77 yo F presenting with left hand weakness she woke up with yesterday morning. She denies any associated weakness of the arm, no change in speech or vision. At baseline uses a wheelchair at her retirement. She denies sleeping in a different position or location than her bed. Allergies Allergy/AdvReac Type Severity Reaction Status Date / Time No Known Allergies Allergy Verified 08/02/22 09:38 Home Medications Medication Instructions Recorded Confirmed Type Lactobacillus comb 1 cap PO AC 08/02/22 10/08/22 History [id number] 300 million cell-250 mg capsule (Probiotic and Acidophilus) acetaminophen 325 mg tablet 325 mg PO Q4H PRN Pain 08/02/22 10/08/22 History amlodipine 5 mg tablet 5 mg PO DAILY 08/02/22 10/08/22 History ammonium lactate 12 % topical cream 1 applic topical BID 08/02/22 10/08/22 History amoxicillin 875 mg-potassium 1 tab PO BID 08/02/22 10/08/22 History clavulanate 125 mg tablet aspirin 81 mg tablet 81 mg PO QAM 08/02/22 10/08/22 History bisacodyl 10 mg rectal suppository 10 mg MS DAILY PRN Constipation 08/02/22 10/08/22 History (Dulcolax (bisacodyl)) calcium acetate 667 mg tablet 667 mg PO QAM 08/02/22 10/08/22 History cholecalciferol (vitamin D3) 25 25 mcg PO QAM 08/02/22 10/08/22 History mcg (1,000 unit) capsule (Vitamin D3) cyanocobalamin (vitamin B-12) 500 500 mcg PO QAM 08/02/22 10/08/22 History mcg tablet (Vitamin B-12) diclofenac sodium 1 % topical gel 2 g topical QID PRN Pain 08/02/22 10/08/22 History ferrous sulfate 325 mg (65 mg 325 mg PO DAILY 08/02/22 10/08/22 History iron) tablet gabapentin 100 mg capsule 100 mg PO QAM 08/02/22 10/08/22 History gabapentin 100 mg capsule 200 mg PO HS 08/02/22 10/08/22 History guaifenesin 100 mg/5 mL oral 200 mg PO Q4H PRN Cough 08/02/22 10/08/22 History liquid (Tussin Mucus-Chest Congestion) magnesium hydroxide 400 mg/5 mL 30 ml PO DAILY PRN No bowel 08/02/22 10/08/22 History oral suspension (Milk of Magnesia) movement in 3 days sodium phosphates 19 gram-7 118 ml MS DAILY PRN Constipation 08/02/22 10/08/22 History gram/118 mL enema (Fleet Enema) famotidine 20 mg tablet 20 mg PO BID 10/08/22 10/08/22 History glipizide 5 mg tablet, extended 5 mg PO QAM 10/08/22 10/08/22 History release 24 hr ipratropium 0.5 mg-albuterol 3 mg 3 ml inhalation Q4H PRN short of 10/08/22 10/08/22 History (2.5 mg base)/3 mL nebulization breath soln metformin 500 mg tablet 500 mg PO BID 10/08/22 10/08/22 History ondansetron HCl 4 mg tablet 4 mg PO Q6H PRN nausea 10/08/22 10/08/22 History Patient History Medical History (Updated 10/09/22 @ 10:05 by Dawson Galaviz MD) Acute kidney failure Acute metabolic acidosis Acute respiratory failure Alzheimers disease Anemia Atherosclerotic heart disease of [place] coronary artery without angina pectoris Cellulitis and abscess of right lower extremity DJD (degenerative joint disease), lumbosacral Dysphagia Encephalopathy Exotropia Hyperlipidemia Hypomagnesemia Muscle weakness Partial intestinal obstruction, unspecified as to cause Polyosteoarthritis, unspecified Primary hypertension Sepsis Spondylolisthesis of lumbosacral region Strabismus Type 2 diabetes mellitus UTI (urinary tract infection) Vitamin D deficiency Surgical History (Updated 08/02/22 @ 10:28 by Marie Donis RN) History of appendectomy History of hysterectomy Social History Smoking Status: Never smoker Hx Alcohol Use: No Hx Substance Use: No Preferred Language: Latvian Kindergarten Assistant Required: No Beliefs That Will Affect Care: None Current Living Situation: Long-Term Feels Safe at Home: Yes Safety Concerns: Feels Safe At This Time Assistive Devices: Walker Review of Systems +left hand weakness Physical Exam Neurological Examination: Mental Status: Awake and alert. Fluent, non-dysarthric. Comprehension intact. Affect appropriate. Cranial Nerves: II: pupils 3/3 to 2/2 VII: Facial expression symmetric VIII: Hearing intact to voice Motor: Strength was symmetric and antigravity throughout. left hand and wrist extensor weakness only. Pronator drift was absent. There were no abnormal movements. Sensory: Sensation to light touch was intact. Results & Data Vital Signs (Past 12 Hours) Vital Signs Pulse Pulse Resp BP BP Pulse Ox Pulse Ox 10/09/22 09:00 84 29 H 95 10/09/22 09:00 149/85 H 10/09/22 08:30 83 27 H 95 10/09/22 08:30 136/68 10/09/22 08:00 77 33 H 96 10/09/22 08:00 123/63 10/09/22 07:30 82 36 H 93 10/09/22 07:30 130/64 10/09/22 07:00 94 10/09/22 07:00 130/77 10/09/22 07:42 94 10/09/22 07:27 86 10/09/22 06:00 86 28 H 118/63 93 10/09/22 05:00 87 30 H 130/68 94 10/09/22 04:30 89 30 H 113/63 94 10/09/22 03:30 89 28 H 127/66 95 10/09/22 01:00 89 28 H 139/85 95 10/09/22 00:30 87 30 H 142/73 H 96 10/09/22 03:57 90 16 127/66 95 10/09/22 00:00 89 24 150/75 H 96 10/08/22 23:54 92 H 24 136/71 96 10/09/22 00:12 86 O2 Del Method O2 Del Method 10/09/22 09:00 Room Air 10/09/22 09:00 10/09/22 08:30 Room Air 10/09/22 08:30 10/09/22 08:00 Room Air 10/09/22 08:00 10/09/22 07:30 Room Air 10/09/22 07:30 10/09/22 07:00 Room Air 10/09/22 07:00 10/09/22 07:42 Room Air 10/09/22 07:27 10/09/22 06:00 10/09/22 05:00 10/09/22 04:30 10/09/22 03:30 10/09/22 01:00 10/09/22 00:30 10/09/22 03:57 Room Air 10/09/22 00:00 10/08/22 23:54 10/09/22 00:12 Laboratory Results Abnormal lab results 10/08/22 10/08/22 10/08/22 Range/Units 16:30 16:30 16:37 WBC 11.94 H (4.8-10.8) K/ul RBC 3.60 L (4.20-5.40) M/uL Hgb 10.3 L (12.0-16.0) g/dl POC Hgb 10.9 L (12.0-16.0) g/dl Hct 30.4 L (37.0-47.0) % POC Hct 32 L (37-47) % RDW Std Deviation 54.0 H (36.4-46.3) fL RDW Coeff of Valeri 17.6 H (11.5-14.5) % Neut # (Auto) 7.59 H (1.40-6.50) K/uL Lymph # (Auto) (1.2-3.4) K/uL [place] # (Auto) 1.70 H (0.11-0.59) K/uL Immature Gran # (Auto) 1.09 H (0.01-0.20) K/uL POC Sodium 131 L (135-144) mmol/L Sodium 128 L (136-145) mmol/L Potassium (3.5-5.1) mmol/L POC Chloride 97 L (101-112) mmol/L Chloride 97 L (98-107) mmol/L Carbon Dioxide (21-32) mmol/L POC Anion Gap 13.0 L (16-25) mmol/L POC BUN 27 H (7-18) mg/dl BUN 26 H (6-23) mg/dl BUN/Creatinine Ratio 21.7 H (10-20) Glucose 109 H (70-99(Fasting)) mg/dl POC Glucose (other) 120 H (70-99) mg/dl Hemoglobin A1c (4.5-5.6) % Osmolality (280-300) mOsm/kg Calcium (8.6-10.3) mg/dl Troponin I High Sens 16.9 H (0-14) pg/ml Albumin 3.3 L (3.4-5.0) gm/dl Globulin 4.5 H (2.5-4.0) gm/dl Albumin/Globulin Ratio 0.7 L (0.9-2) 10/09/22 10/09/22 10/09/22 Range/Units 04:06 04:06 04:06 WBC 12.83 H (4.8-10.8) K/ul RBC 3.31 L (4.20-5.40) M/uL Hgb 9.3 L (12.0-16.0) g/dl POC Hgb (12.0-16.0) g/dl Hct 27.5 L (37.0-47.0) % POC Hct (37-47) % RDW Std Deviation 52.6 H (36.4-46.3) fL RDW Coeff of [place]eri 17.4 H (11.5-14.5) % Neut # (Auto) 9.59 H (1.40-6.50) K/uL Lymph # (Auto) 0.89 L (1.2-3.4) K/uL [place] # (Auto) 1.47 H (0.11-0.59) K/uL Immature Gran # (Auto) 0.73 H (0.01-0.20) K/uL POC Sodium (135-144) mmol/L Sodium 131 L (136-145) mmol/L Potassium 3.1 L (3.5-5.1) mmol/L POC Chloride (101-112) mmol/L Chloride (98-107) mmol/L Carbon Dioxide 18 L (21-32) mmol/L POC Anion Gap (16-25) mmol/L POC BUN (7-18) mg/dl BUN (6-23) mg/dl BUN/Creatinine Ratio 20.9 H (10-20) Glucose 176 H (70-99(Fasting)) mg/dl POC Glucose (other) (70-99) mg/dl Hemoglobin A1c 7.6 H (4.5-5.6) % Osmolality (280-300) mOsm/kg Calcium 7.9 L (8.6-10.3) mg/dl Troponin I High Sens (0-14) pg/ml Albumin (3.4-5.0) gm/dl Globulin (2.5-4.0) gm/dl Albumin/Globulin Ratio (0.9-2) / Range/Units 04:06 WBC (4.8-10.8) K/ul RBC (4.20-5.40) M/uL Hgb (12.0-16.0) g/dl POC Hgb (12.0-16.0) g/dl Hct (37.0-47.0) % POC Hct (37-47) % RDW Std Deviation (36.4-46.3) fL RDW Coeff of Valeri (11.5-14.5) % Neut # (Auto) (1.40-6.50) K/uL Lymph # (Auto) (1.2-3.4) K/uL [place] # (Auto) (0.11-0.59) K/uL Immature Gran # (Auto) (0.01-0.20) K/uL POC Sodium (135-144) mmol/L Sodium (136-145) mmol/L Potassium (3.5-5.1) mmol/L POC Chloride (101-112) mmol/L Chloride (98-107) mmol/L Carbon Dioxide (21-32) mmol/L POC Anion Gap (16-25) mmol/L POC BUN (7-18) mg/dl BUN (6-23) mg/dl BUN/Creatinine Ratio (10-20) Glucose (70-99(Fasting)) mg/dl POC Glucose (other) (70-99) mg/dl Hemoglobin A1c (4.5-5.6) % Osmolality 279 L (280-300) mOsm/kg Calcium (8.6-10.3) mg/dl Troponin I High Sens (0-14) pg/ml Albumin (3.4-5.0) gm/dl Globulin (2.5-4.0) gm/dl Albumin/Globulin Ratio (0.9-2) Diagnostic Findings MRI brain - Unremarkable CTA head and neck unremarkable
--- NOTE | 2022-10-09 12:24 | Consultation Report ---
NEPHROLOGY CONSULTATION NOTE REASON FOR CONSULTATION: Hyponatremia. HISTORY OF PRESENT ILLNESS: The patient is a 77-year-old female who is a resident of [facility]. She has fairly severe Alzheimer's dementia at baseline as well as multiple other medical p roblems including chronic mild hyponatremia. She had serum sodium anywhere from 132 to 135 as an out patient for a while now. She cannot tell me any history. As per the medical records, she was sent o cuhng from the retirement because of right-handed weakness. The thought was she was having acute str nicole. According to the imaging, it does not appear she has acute stroke. She had a serum sodium of 1 28 on admission. Overnight, she got some IV fluid and with that serum sodium this morning is 131. W e do not have any urine test as of now. The patient's vital signs appear fairly stable. There is no report of having any nausea, vomiting, diarrhea, fever, chills, shortness of breath, or any other sy mptoms. I cannot comment about her fluid intake, nor about her solid food intake. ALLERGIES: None. PAST MEDICAL AND SURGICAL HISTORY: Includes type 2 diabetes, history of ovarian cancer, hyperlipidem ia, history of low magnesium and low potassium, hypertension, coronary artery disease, right bundle b ranch block, moderately severe Alzheimer's dementia, myelodysplastic disease, anemia of chronic disea se, history of MRSA infection, constipation, appendicectomy, total abdominal hysterectomy with bilate ral tubal removal. MEDICATIONS: At home was reviewed in detail and is as per the H and P and the reconciliation list. It does not appear the patient is on any diuretics. FAMILY HISTORY: Negative for renal disease or dialysis. SOCIAL HISTORY: No smoking, no alcohol, no drugs. She is currently in a retirement. REVIEW OF SYSTEMS: Unable to obtain directly from the patient given her dementia. As per the record other than this right sided weakness, there was nothing acute symptom [place]. PHYSICAL EXAMINATION: GENERAL: Elderly white female who appears to be chronically ill. She does have underlying dementia and was not really able to give me any accurate history. VITAL SIGNS: Most recent vital signs include blood pressure 149/85, pulse rate 84, temperature 36.9, 95% on room air. HEENT: Mucous membrane is moist. NECK: Supple. No jugular venous distention. CHEST: Bilateral decreased breath sounds, poor inspiratory effort, limited quality exam. CARDIOVASCULAR: S1 and S2, regular. ABDOMEN: Soft, nontender. EXTREMITIES: Show trace edema. LABORATORY TEST: Shows serum sodium was 128 on admission yesterday, this morning is 131. At [facility], she had serum sodium ranging from 130-135, potassium 3.1, chloride 103, bicarbonate 18, magnesium 1.7. Urine test pending. ASSESSMENT AND PLAN: A 77-year-old female who is a resident of retirement with underlying dementia , now admitted with right sided weakness. I was consulted for acute on chronic hyponatremia. It dilip ears she does have very mild hyponatremia at baseline with a serum sodium ranging from 130-135. On a dmission, serum sodium was 128, which has since improved to 131 with use of normal saline. At this t clau, she is not really eating or drinking anything, so it is reasonable to continue with the normal s trey for the time being. As per the hyponatremia workup, we do need urine sodium, urine creatinine, urine osmolality as well as TSH, BMP can be done once daily at this point given that her current sod ium is pretty much close to her baseline. Free fluid restriction 1200 mL per day. I will continue t o follow the patient. Thank you very much for the consult. Job ID: [id number]
--- NOTE | 2022-10-09 14:59 | Hospitalist Progress Note ---
Date of Service October 09, 2022 Assessment & Plan (1) Acute radial nerve palsy of left upper extremity: Plan: Patient is a 77 yr female who presents with right hand weakness. Right radial nerve palsy of the right upper extremity --MRI Brain:Moderate to severe generalized brain atrophy along with microangiopathic white matter disease. No acute stroke or intracranial hemorrhage. No enhancing intracranial lesions seen. Sequela pansinusitis as described. --Head CTA:No essential occlusions related to the [place] of [place]. --Neck CTA:No occlusion or high-grade stenosis. --CT Head:No acute intracranial process. MRI is more sensitive for ischemia if clinically warranted. --ECHO pending --TSH pending --Appreciate neurology input: Not CVA, Likely right radial nerve palsy Consulted orthotics for right wrist splint Needs follow-up with neurology upon discharge Plan to consider EMG if persistent symptoms after 6 weeks. Acute on Chronic Hyponatremia: Sodium Levels 128>131 Continue gentle IV fluids Appreciate nephrology input Monitor sodium levels Discussed with nephrology: continue gentle IVF as patient has poor oral intake. Hypokalemia Replete electrolytes as needed Monitor Recent bronchitis and UTI Initially started on doxycycline--developed GI upset Started on Augmentin as outpatient on 10/09/22:-- End date 10/13/2022--Continue H/O moderate late-onset Alzheimer's dementia without behavioral disturbances Monitor for delirium Reorient frequently DM II HbA1C: 7.6 Hold home metformin and glipizide Utilize Insulin per protocol for managing diabetes mellitus Monitor blood sugar levels H/O Myelodysplastic disease: Follows with hematology/oncology. Continue ferrous sulfate. CKD III Cr: 1.2>0.91 Monitor renal function Avoid nephrotoxic agents as able Anemia of chronic kidney disease Continue iron, B12 supplements No acute bleeding issues Monitor hemoglobin DVT Px: Heparin SQ CODE STATUS Full code Admission and Anticipated Discharge Date Admission Date: October 08, 2022 Subjective Patient is seen and examined at bedside States having right upper extremity weakness Denies any chest pain, shortness of breath, dizziness, nausea, abdominal pain Was having physical therapy during my encounter Discussed with neurology today. Review of Systems Review of Systems: All systems reviewed & are unremarkable except as noted in Subjective Physical Exam Physical Exam: Physical Exam: Vitals signs as noted above General Appearance:Moderately built and nourished, no apparent distress, Elderly Head: normocephalic, Atraumatic Eyes: normal inspection, EOMI Neck: supple, Trachea midline Respiratory/Chest: Decreased breath sounds, CTA, No accessory muscle use Cardiovascular: S1, S2, No murmur Abdomen/GI:Soft, Non tender, Bowel sounds present Extremities/Musculoskeletal:normal inspection, Trace edema Neurologic/Psych:AAOX3, RUE relatively weak when compared to LUE Skin: normal color, warm Results & Data Results & Data Vital Signs (Past 12 Hours) Vital Signs Temp Pulse Pulse Resp BP BP Pulse Ox 10/09/22 13:01 129/82 10/09/22 13:01 85 20 92 10/09/22 13:00 90 93 10/09/22 12:00 82 94 10/09/22 11:00 77 10/09/22 11:01 77 18 93 10/09/22 11:01 128/63 10/09/22 11:00 78 93 10/09/22 11:35 36.7 C 10/09/22 11:00 10/09/22 09:00 84 29 H 95 10/09/22 09:00 149/85 H 10/09/22 08:30 83 27 H 95 10/09/22 08:30 136/68 10/09/22 08:00 77 33 H 96 10/09/22 08:00 123/63 10/09/22 07:30 82 36 H 93 10/09/22 07:30 130/64 10/09/22 07:00 94 10/09/22 07:00 130/77 10/09/22 07:42 10/09/22 07:27 86 10/09/22 06:00 86 28 H 118/63 93 10/09/22 05:00 87 30 H 130/68 94 10/09/22 04:30 89 30 H 113/63 94 10/09/22 03:30 89 28 H 127/66 95 10/09/22 03:57 90 16 127/66 95 Pulse Ox O2 Del Method O2 Del Method 10/09/22 13:01 10/09/22 13:01 10/09/22 13:00 10/09/22 12:00 Room Air 10/09/22 11:00 10/09/22 11:01 Room Air 10/09/22 11:01 10/09/22 11:00 10/09/22 11:35 10/09/22 11:00 Room Air 10/09/22 09:00 Room Air 10/09/22 09:00 10/09/22 08:30 Room Air 10/09/22 08:30 10/09/22 08:00 Room Air 10/09/22 08:00 10/09/22 07:30 Room Air 10/09/22 07:30 10/09/22 07:00 Room Air 10/09/22 07:00 10/09/22 07:42 94 Room Air 10/09/22 07:27 10/09/22 06:00 10/09/22 05:00 10/09/22 04:30 10/09/22 03:30 10/09/22 03:57 Room Air Laboratory Results Short CBC 10/08/22 10/09/22 Range/Units 16:30 04:06 WBC 11.94 H 12.83 H (4.8-10.8) K/ul Hgb 10.3 L 9.3 L (12.0-16.0) g/dl Hct 30.4 L 27.5 L (37.0-47.0) % Plt Count 306 238 (130-400) K/uL BMP 10/08/22 10/09/22 16:30 04:06 Sodium 128 L 131 L Potassium 3.5 3.1 L Chloride 97 L 103 Carbon Dioxide 22 18 L BUN 26 H 19 Creatinine 1.20 0.91 Glucose 109 H 176 H Calcium 8.7 7.9 L Liver Function 10/08/22 Range/Units 16:30 Total Bilirubin 0.6 (0.2-1.0) mg/dl AST 15 (13-39) U/L ALT 11 (7-52) U/L Alkaline Phosphatase 69 (34-104) U/L Albumin 3.3 L (3.4-5.0) gm/dl
[2022-10-09 15:23] LABS: Creatinine Urine Random 46.6 mg/dl
[2022-10-09] MEDS ORDERED: SODIUM CHLORIDE 0.9% 500 ML IV ONE (16:13)
[2022-10-09] MEDS: HEPARIN SOD 5,000 UNIT/0.5 ML VIAL SQ SCH (20:57)
[2022-10-09] MEDS ORDERED: GABAPENTIN 100 MG CAP PO SCH (21:00)
[2022-10-10 06:28] LABS: BUN Creatinine Ratio 13.1 (10-20); Calcium 8.5 mg/dl (8.6-10.3); Creatinine Clr Calc Pharmacy 47.1 ml/min; Est GFR (African American) 62.8 ml/min; Est GFR (Non-African American) 54.2 ml/min; Magnesium 1.8 mg/dl (1.7-2.4); Potassium 3.6 mmol/L (3.5-5.1)
--- NOTE | 2022-10-10 08:07 | XRay Report ---
XR chest 1V portable CLINICAL HISTORY: Dyspnea TECHNIQUE: Single frontal radiograph of the chest was obtained. Comparison: Comparison is made to CTA head and neck 10/08/2022 FINDINGS: No lines and tubes are seen. Cardiomegaly is noted. The aortic arch is calcified. Right greater than left airspace opacity is seen. Moderate right and small left pleural effusion. IMPRESSION: Moderate right and small left pleural effusion. Bilateral lower lung airspace opacities likely repres ent atelectasis with or without superimposed aspiration/pneumonia. ACT 112: Negative or not required by law. Electronically signed by: Frederick Nazario M.D. 10/10/2022 8:06 AM
[2022-10-10] MEDS: ADVANCED PROBIOTIC 1250 MG CAPSULE PO SCH ×2 (08:12→11:44)
[2022-10-10] MEDS: amLODIPine BESYLATE 5 MG TAB PO SCH (08:12)
[2022-10-10] MEDS: CYANOCOBALAMIN (B-12) 500 MCG TABLET PO SCH (08:13)
[2022-10-10] MEDS: CLOPIDOGREL BISULFATE 75 MG TAB PO SCH (08:13)
[2022-10-10] MEDS: ASPIRIN 81 MG ECTAB PO SCH (08:13)
[2022-10-10] MEDS: FERROUS SULFATE 325 MG TAB PO SCH (08:13)
[2022-10-10] MEDS: CALCIUM ACETATE 667 MG CAP/TAB PO SCH (08:13)
[2022-10-10] MEDS: CHOLECALCIFEROL 1,000 UNITS 25 MCG TAB PO SCH ×2 (08:13→08:14)
[2022-10-10] MEDS: GABAPENTIN 100 MG CAP PO SCH (08:14)
[2022-10-10] MEDS: HEPARIN SOD 5,000 UNIT/0.5 ML VIAL SQ SCH (08:14)
[2022-10-10] MEDS: AMOXICILLIN/CLAVULANATE 875 MG TAB PO SCH (08:14)
[2022-10-10] MEDS: FAMOTIDINE 20 MG TAB PO SCH (08:16)
[2022-10-10] MEDS: AMMONIUM LACTATE 12% LOTION 225 GM BTL EXT SCH (08:16)
[2022-10-10 08:46] LABS: Basophils # (auto) 0.03 K/uL (0-0.2); Basophils % (auto) 0.2 %; Eosinophils # (auto) 0.16 K/uL (0-0.50); Eosinophils % (auto) 1.3 %; Hematocrit (blood only) 28.8 % (37.0-47.0); Hemoglobin 9.5 g/dl (12.0-16.0); Immature Granulocytes # (auto) 0.56 K/uL (0.01-0.20); Immature Granulocytes % (auto) 4.5 %; Lymphocytes # (auto) 0.97 K/uL (1.2-3.4); Lymphocytes % (auto) 7.8 %; Mean Corpuscular Hemoglobin 27.9 pg (25.0-34.0); Mean Corpuscular Volume 84.5 fL (80.0-100.0); Monocytes # (auto) 1.52 K/uL (0.11-0.59); Monocytes % (auto) 12.3 %; Neutrophils # (auto) 9.14 K/uL (1.40-6.50); Neutrophils % (auto) 73.9 %; Platelet Count 361 K/uL (130-400); RDW Coefficient of Variation 17.6 % (11.5-14.5); RDW Standard Deviation 54.8 fL (36.4-46.3); Red Blood Count 3.41 M/uL (4.20-5.40); White Blood Count 12.38 K/ul (4.8-10.8)
[2022-10-10] MEDS ORDERED: POTASSIUM CHLORIDE CRTAB 20 MEQ TABCR PO ONE (08:50)
[2022-10-10] MEDS ORDERED: FUROSEMIDE 40 MG/4 ML VIAL IV SCH (09:00)
--- NOTE | 2022-10-10 13:16 | Hospitalist Progress Note ---
Date of Service October 10, 2022 Assessment & Plan (1) Acute radial nerve palsy of left upper extremity: Plan: Patient is a 77 yr female who presents with right hand weakness. Right radial nerve palsy of the right upper extremity --MRI Brain:Moderate to severe generalized brain atrophy along with microangiopathic white matter disease. No acute stroke or intracranial hemorrhage. No enhancing intracranial lesions seen. Sequela pansinusitis as described. --Head CTA:No essential occlusions related to the [place] of [place]. --Neck CTA:No occlusion or high-grade stenosis. --CT Head:No acute intracranial process. MRI is more sensitive for ischemia if clinically warranted. --ECHO pending --TSH pending --Appreciate neurology input: Not CVA, Likely right radial nerve palsy Consulted orthotics for right wrist splint Needs follow-up with neurology upon discharge Plan to consider EMG if persistent symptoms after 6 weeks. Acute on Chronic Hyponatremia: Sodium Levels 128>131>134 Appreciate nephrology input Monitor sodium levels Bilateral Pleural Effusion Incidental finding on CXR ? Chronic diastolic Heart Failure --ECHO: Mild concentric LVH. Left ventricle wall motion is normal. Left ventricle systolic function is normal. EF 55 to 60%. Grade 1 diastolic dysfunction Denies any dyspnea, chest pain Saturating well on room air Was started on Lasix 40mg daily Advise to follow up with Cardiology as outpatient Hypokalemia Replete electrolytes as needed Monitor Recent bronchitis and UTI Initially started on doxycycline--developed GI upset Started on Augmentin as outpatient on 10/09/22:-- End date 10/13/2022--Continue H/O moderate late-onset Alzheimer's dementia without behavioral disturbances Monitor for delirium Reorient frequently DM II HbA1C: 7.6 Hold home metformin and glipizide Utilize Insulin per protocol for managing diabetes mellitus Monitor blood sugar levels H/O Myelodysplastic disease: Follows with hematology/oncology. Continue ferrous sulfate. CKD III Cr: 1.2>0.91 Monitor renal function Avoid nephrotoxic agents as able Anemia of chronic kidney disease Continue iron, B12 supplements No acute bleeding issues Monitor hemoglobin DVT Px: Heparin SQ CODE STATUS Full code Disposition [facility] Admission and Anticipated Discharge Date Admission Date: October 08, 2022 Subjective Patient is seen and examined at bedside States feeling batter today No new complaints Denies any chest pain, shortness of breath, dizziness, nausea, abdominal pain Plan to discharge to [facility] today Review of Systems Review of Systems: All systems reviewed & are unremarkable except as noted in Subjective Physical Exam Physical Exam: Physical Exam: Vitals signs as noted above General Appearance:Moderately built and nourished, no apparent distress, Elderly Head: normocephalic, Atraumatic Eyes: normal inspection, EOMI Neck: supple, Trachea midline Respiratory/Chest: Decreased breath sounds, CTA, No accessory muscle use Cardiovascular: S1, S2, No murmur Abdomen/GI:Soft, Non tender, Bowel sounds present Extremities/Musculoskeletal:normal inspection, Trace edema Neurologic/Psych:AAOX3, RUE relatively weak when compared to LUE Skin: normal color, warm Results & Data Results & Data Vital Signs (Past 12 Hours) Vital Signs Temp Pulse Pulse Resp BP BP Pulse Ox 10/10/22 12:01 144/89 H 10/10/22 12:01 84 28 H 93 10/10/22 12:00 86 35 H 97 10/10/22 11:43 137/70 10/10/22 08:30 89 29 H 93 10/10/22 07:41 36.9 C 91 H 20 171/83 H 93 10/10/22 04:30 75 37 H 10/10/22 04:20 74 39 H 92 10/10/22 04:10 73 43 H 93 10/10/22 04:00 77 39 H 92 10/10/22 04:00 137/64 10/10/22 03:50 71 35 H 96 10/10/22 03:40 74 35 H 10/10/22 03:30 79 43 H 91 10/10/22 03:20 76 34 H 93 10/10/22 03:10 73 37 H 93 10/10/22 03:00 74 38 H 92 10/10/22 02:50 83 27 H 93 10/10/22 02:40 70 33 H 91 10/10/22 02:30 71 35 H 92 10/10/22 02:20 76 35 H 92 10/10/22 02:10 72 35 H 92 10/10/22 02:00 77 37 H 10/10/22 01:50 78 39 H 93 10/10/22 01:40 75 32 H 92 10/10/22 04:38 36.8 C 10/10/22 01:30 75 39 H 92 10/10/22 01:20 76 33 H 91 10/10/22 01:10 72 36 H 90 O2 Del Method 10/10/22 12:01 10/10/22 12:01 Room Air 10/10/22 12:00 Room Air 10/10/22 11:43 10/10/22 08:30 Room Air 10/10/22 07:41 Room Air 10/10/22 04:30 10/10/22 04:20 10/10/22 04:10 10/10/22 04:00 10/10/22 04:00 10/10/22 03:50 10/10/22 03:40 10/10/22 03:30 10/10/22 03:20 10/10/22 03:10 10/10/22 03:00 10/10/22 02:50 10/10/22 02:40 10/10/22 02:30 10/10/22 02:20 10/10/22 02:10 10/10/22 02:00 10/10/22 01:50 10/10/22 01:40 10/10/22 04:38 10/10/22 01:30 10/10/22 01:20 10/10/22 01:10 Laboratory Results Short CBC 10/10/22 10/10/22 Range/Units 05:47 08:20 WBC Cancelled 12.38 H Hgb Cancelled 9.5 L Hct Cancelled 28.8 L Plt Count Cancelled 361 D BMP 10/10/22 05:47 Sodium 134 L Potassium 3.6 Chloride 107 Carbon Dioxide 19 L BUN 13 Creatinine 0.99 Glucose 91 Calcium 8.5 L
--- NOTE | 2022-10-10 13:37 | Discharge Summary ---
Date of Service October 10, 2022 Admission HPI Per Admitting Provider CHIEF COMPLAINT: Right hand weakness. HISTORY OF PRESENT ILLNESS: A 77-year-old female with past medical history significant for type 2 diabetes, history of ovarian cancer, hyperlipidemia, hypomagnesemia, hypokalemia, hypertension, CAD, right bundle-branch block, vitamin B12 deficiency, slow transit constipation, degenerative disk disease, osteoarthritis, neuromuscular weakness, moderate late-onset Alzheimer's dementia without behavioral disturbance, myelodysplastic disease, anemia of chronic kidney disease, history of MRSA infection, strabismus, esotropia of right eye, history of COVID-19, who lives at [facility] and presents with right hand weakness since yesterday night and today she could not use a spoon to eat. As per alf, it looks like last well known was yesterday night. Was brought in because of the right hand weakness. The patient is alert and oriented to name and place, could tell her date of , denies any headache. No blurred visions. Denies any earache, no runny nose, no sore throat, no difficulty swallowing. No cough, no fevers, no chest pain. She had some chest pain earlier, but that is resolved now. No shortness of breath, no nausea, no abdominal pain. Normal bowel and bladder movements. She says that she ambulates with a walker. She eats soft food. Tried to reach out to her daughter and also [facility], but not able to at this time Admission Exam Per Admitting Provider PHYSICAL EXAMINATION: GENERAL: The patient is of moderate build, not in acute distress. VITAL SIGNS: Temperature 36.9, pulse 82, respiratory rate 25, blood pressure 133/68, oxygen 99% on room air. HEENT: Pupils equal, round and reactive to light. No facial droop. Oral mucosa moist. NECK: No JVD, no neck masses. CARDIOVASCULAR: S1 and S2 heard. Regular rate and rhythm. No murmur, no gallop. RESPIRATORY SYSTEM: Normal AP diameter. No accessory muscle use. No wheezing or crackles. ABDOMEN: Soft, bowel sounds present, nontender, no distention. CENTRAL NERVOUS SYSTEM: Alert and oriented to name and place. Could tell her date of . Speech is clear. No facial droop. Hand instructor hairspring is less, decreased on the right hand instructor hairspring. Difficult to lift her right upper extremity and can lift and hold lower extremity. could not do coordination of movements. Sensation is intact. EXTREMITIES: No edema, no erythema. Principal Diagnosis Right radial nerve palsy of the right upper extremity Acute on Chronic Hyponatremia Bilateral pleural effusion Hypokalemia Discharge Data Allergies Allergy/AdvReac Type Severity Reaction Status Date / Time No Known Allergies Allergy Verified 08/02/22 09:38 Consultations 10/08/22 20:07 ED Decision to Admit Stat 10/09/22 08:00 Consult Nephrology Routine Consult Neurology Routine Procedures Performed Laboratory Results WBC 12.38 K/ul (4.8-10.8) H 10/10/22 08:20 RBC 3.41 M/uL (4.20-5.40) L 10/10/22 08:20 Hgb 9.5 g/dl (12.0-16.0) L 10/10/22 08:20 POC Hgb 10.9 g/dl (12.0-16.0) L 10/08/22 16:37 Hct 28.8 % (37.0-47.0) L 10/10/22 08:20 POC Hct 32 % (37-47) L 10/08/22 16:37 MCV 84.5 fL (80.0-100.0) 10/10/22 08:20 MCH 27.9 pg (25.0-34.0) 10/10/22 08:20 MCHC 33.0 g/dL (32.0-36.0) 10/10/22 08:20 RDW Std Deviation 54.8 fL (36.4-46.3) H 10/10/22 08:20 RDW Coeff of Valeri 17.6 % (11.5-14.5) H 10/10/22 08:20 Plt Count 361 K/uL (130-400) D 10/10/22 08:20 MPV 9.0 fL (9.4-12.4) L 10/10/22 08:20 Immature Gran % (Auto) 4.5 % 10/10/22 08:20 Neut % (Auto) 73.9 % 10/10/22 08:20 Lymph % (Auto) 7.8 % 10/10/22 08:20 [place] % (Auto) 12.3 % 10/10/22 08:20 Eos % (Auto) 1.3 % 10/10/22 08:20 Baso % (Auto) 0.2 % 10/10/22 08:20 Neut # (Auto) 9.14 K/uL (1.40-6.50) H 10/10/22 08:20 Lymph # (Auto) 0.97 K/uL (1.2-3.4) L 10/10/22 08:20 [place] # (Auto) 1.52 K/uL (0.11-0.59) H 10/10/22 08:20 Eos # (Auto) 0.16 K/uL (0-0.50) 10/10/22 08:20 Baso # (Auto) 0.03 K/uL (0-0.2) 10/10/22 08:20 Immature Gran # (Auto) 0.56 K/uL (0.01-0.20) H 10/10/22 08:20 Absolute Nucleated RBC Cancelled 10/10/22 05:47 Nucleated RBC % (auto) Cancelled 10/10/22 05:47 Neutrophils % (Manual) Cancelled 10/10/22 05:47 Band Neutrophils % Cancelled 10/10/22 05:47 Lymphocytes % (Manual) Cancelled 10/10/22 05:47 Prolymphocyte % Cancelled 10/10/22 05:47 Reactive Lymphs % (Man) Cancelled 10/10/22 05:47 Monocytes % (Manual) Cancelled 10/10/22 05:47 Eosinophils % (Manual) Cancelled 10/10/22 05:47 Basophils % (Manual) Cancelled 10/10/22 05:47 Metamyelocytes % (Man) Cancelled 10/10/22 05:47 Myelocytes % (Man) Cancelled 10/10/22 05:47 Promyelocytes % (Man) Cancelled 10/10/22 05:47 Blast Cells % (Manual) Cancelled 10/10/22 05:47 Plasma Cell % (Manual) Cancelled 10/10/22 05:47 Other Cells % Cancelled 10/10/22 05:47 Nucleated RBC % Cancelled 10/10/22 05:47 Neutrophils # (Manual) Cancelled 10/10/22 05:47 Band Neutrophils # Cancelled 10/10/22 05:47 Total Absolute Neuts Cancelled 10/10/22 05:47 Lymphocytes # (Manual) Cancelled 10/10/22 05:47 Prolymphocyte # Cancelled 10/10/22 05:47 Reactive Lymphs # Cancelled 10/10/22 05:47 Total Abs Lymphocytes Cancelled 10/10/22 05:47 Monocytes # (Manual) Cancelled 10/10/22 05:47 Eosinophils # (Manual) Cancelled 10/10/22 05:47 Basophils # (Manual) Cancelled 10/10/22 05:47 Metamyelocytes # (Man) Cancelled 10/10/22 05:47 Myelocytes # (Manual) Cancelled 10/10/22 05:47 Promyelocytes # (Man) Cancelled 10/10/22 05:47 Blast Cells # (Man) Cancelled 10/10/22 05:47 Plasma Cell # (Manual) Cancelled 10/10/22 05:47 Other Cells # Cancelled 10/10/22 05:47 Nucleated RBCs # (Man) Cancelled 10/10/22 05:47 Hypersegmented Neuts Cancelled 10/10/22 05:47 Hyposegmented Neuts Cancelled 10/10/22 05:47 Hypogranular Neuts Cancelled 10/10/22 05:47 Large Granular Lymphs Cancelled 10/10/22 05:47 # Lrg Granular Lymphs Cancelled 10/10/22 05:47 Hairy Cells Cancelled 10/10/22 05:47 Smudge Cells Cancelled 10/10/22 05:47 Toxic Granulation Cancelled 10/10/22 05:47 Toxic Vacuolation Cancelled 10/10/22 05:47 Dohle Bodies Cancelled 10/10/22 05:47 Oskar Rods Cancelled 10/10/22 05:47 Platelet Estimate Cancelled 10/10/22 05:47 Hypogranular Platelets Cancelled 10/10/22 05:47 Giant Platelets Cancelled 10/10/22 05:47 Platelet Satelliting Cancelled 10/10/22 05:47 RBC Morphology Cancelled 10/10/22 05:47 Polychromasia Cancelled 10/10/22 05:47 Hypochromasia Cancelled 10/10/22 05:47 Poikilocytosis Cancelled 10/10/22 05:47 Basophilic Stippling Cancelled 10/10/22 05:47 Anisocytosis Cancelled 10/10/22 05:47 Microcytosis Cancelled 10/10/22 05:47 Macrocytosis Cancelled 10/10/22 05:47 Spherocytes Cancelled 10/10/22 05:47 Pappenheimer Bodies Cancelled 10/10/22 05:47 Sickle Cells Cancelled 10/10/22 05:47 Target Cells Cancelled 10/10/22 05:47 Tear Drop Cells Cancelled 10/10/22 05:47 Ovalocytes Cancelled 10/10/22 05:47 Stomatocytes Cancelled 10/10/22 05:47 Mel[place] Bodies Cancelled 10/10/22 05:47 Echinocytes Cancelled 10/10/22 05:47 Acanthocytes (Spur) Cancelled 10/10/22 05:47 Rouleaux Cancelled 10/10/22 05:47 RBC Agglutinates Cancelled 10/10/22 05:47 Schistocytes Cancelled 10/10/22 05:47 Sezary Cell Cancelled 10/10/22 05:47 PT 11.0 Seconds (9.0-12.0) 10/08/22 16:30 INR 1.0 (0.9-1.1) 10/08/22 16:30 APTT 22.8 Seconds (21.0-31.0) 10/08/22 16:30 PTT Ratio 0.8 10/08/22 16:30 POC Sodium 131 mmol/L (135-144) L 10/08/22 16:37 Sodium 134 mmol/L (136-145) L 10/10/22 05:47 POC Potassium 3.5 mmol/L (3.3-5.0) 10/08/22 16:37 Potassium 3.6 mmol/L (3.5-5.1) 10/10/22 05:47 POC Chloride 97 mmol/L (101-112) L 10/08/22 16:37 Chloride 107 mmol/L (98-107) 10/10/22 05:47 Carbon Dioxide 19 mmol/L (21-32) L 10/10/22 05:47 POC Total CO2 24 mmol/L (24-31) 10/08/22 16:37 Anion Gap 8 (3-11) 10/10/22 05:47 POC Anion Gap 13.0 mmol/L (16-25) L 10/08/22 16:37 POC BUN 27 mg/dl (7-18) H 10/08/22 16:37 BUN 13 mg/dl (6-23) 10/10/22 05:47 Creatinine 0.99 mg/dl (0.6-1.2) 10/10/22 05:47 POC Creatinine 1.2 mg/dl (0.6-1.3) 10/08/22 16:37 Est Cr Clr Drug Dosing 47.1 ml/min 10/10/22 05:47 Est GFR ( Amer) 62.8 ml/min 10/10/22 05:47 Est GFR (Non-Af Amer) 54.2 ml/min 10/10/22 05:47 BUN/Creatinine Ratio 13.1 (10-20) 10/10/22 05:47 Glucose 91 mg/dl (70-99(Fasting)) 10/10/22 05:47 POC Glucose 168 mg/dl (70-99) H 10/09/22 16:08 POC Glucose (other) 120 mg/dl (70-99) H 10/08/22 16:37 Estimat Average Glucose 171 mg/dl 10/09/22 04:06 Hemoglobin A1c 7.6 % (4.5-5.6) H 10/09/22 04:06 Osmolality 279 mOsm/kg (280-300) L 10/09/22 04:06 Calcium 8.5 mg/dl (8.6-10.3) L 10/10/22 05:47 POC Ioniz Calcium Jada 1.16 mmol/l (1.12-1.32) 10/08/22 16:37 Magnesium 1.8 mg/dl (1.7-2.4) 10/10/22 05:47 Total Bilirubin 0.6 mg/dl (0.2-1.0) 10/08/22 16:30 AST 15 U/L (13-39) 10/08/22 16:30 ALT 11 U/L (7-52) 10/08/22 16:30 Alkaline Phosphatase 69 U/L (34-104) 10/08/22 16:30 Troponin I High Sens 11.8 pg/ml (0-14) 10/09/22 20:03 Total Protein 7.8 gm/dl (6.0-8.3) 10/08/22 16:30 Albumin 3.3 gm/dl (3.4-5.0) L 10/08/22 16:30 Globulin 4.5 gm/dl (2.5-4.0) H 10/08/22 16:30 Albumin/Globulin Ratio 0.7 (0.9-2) L 10/08/22 16:30 Triglycerides 73 mg/dl (0-150) 10/09/22 04:06 Cholesterol 66 mg/dl (0-200) 10/09/22 04:06 LDL Cholesterol, Calc 26 mg/dl 10/09/22 04:06 VLDL Cholesterol, Calc 15 mg/dl (0-30) 10/09/22 04:06 HDL Cholesterol 25 mg/dl 10/09/22 04:06 Cholesterol/HDL Ratio 2.6 (0-5) 10/09/22 04:06 TSH 1.175 uIu/ml (0.300-4.500) 10/10/22 05:47 Urine Osmolality 372 mOsm/kg (500-800) L 10/09/22 14:09 Ur Random Creatinine 46.6 mg/dl 10/09/22 14:09 Ur Random Sodium 56 mmol/L 10/09/22 14:09 Nasal Screen MRSA (PCR) Positive (Negative) A 10/09/22 12:00 SARS-CoV-2, RNA, NAAT NEGATIVE (NEGATIVE) 10/08/22 20:21 Blood Parasites ID Cancelled 10/10/22 05:47 Blood Type A Positive 10/08/22 17:09 Antibody Screen NEGATIVE 10/08/22 17:[address] 10/08/22 16:44 Exam(s): CT HEAD Without Contrast EXAM: CT Head Without Intravenous Contrast CLINICAL HISTORY: Reason for exam: neuro deficit, acute stroke suspected. TECHNIQUE: Axial computed tomography images of the head/brain without intravenous contrast. CTDI is 31.3 mGy and DLP is 512.02 mGy-cm. Automated exposure control was utilized for the study. A dose lowering technique was utilized adhering to the principles of ALARA. COMPARISON: No relevant prior studies available. FINDINGS: Brain: No hemorrhage. No apparent acute cortical infarct. No mass lesion or midline shift. Involutional changes with small vessel disease. Ventricles: No hydrocephalus. Bones/joints: No acute fracture. Soft tissues: Unremarkable. Sinuses: Mucosal thickening in the bilateral maxillary sinuses. Fluid level in the sphenoid and left maxillary sinuses. Mastoid air cells: No mastoid effusion. Orbits: Unremarkable as visualized. IMPRESSION: No acute intracranial process. MRI is more sensitive for ischemia if clinically warranted. Electronically signed by: Carmen Costello M.D. 10/08/22 19:23 PM Head CTA 10/08/22 16:44 Exam(s): CTA HEAD With Contrast IV Amt: 114ml optiray 320 EXAM: CT Angiography Head With Intravenous Contrast CLINICAL HISTORY: Reason for exam: neuro deficit, acute stroke suspected. TECHNIQUE: Axial computed tomographic angiography images of the head with intravenous contrast. CTDI is 31.3 mGy and DLP is 512.02 mGy-cm. Automated exposure control was utilized for the study. A dose lowering technique was utilized adhering to the principles of ALARA. MIP reconstructed images were created and reviewed. CONTRAST: Patient received 114ml optiray 320 of IV contrast COMPARISON: No relevant prior studies available. FINDINGS: Diffuse atherosclerotic changes. Right internal carotid artery: Internal carotid is patent with no significant stenosis. No aneurysm. Right anterior cerebral artery: No occlusion or significant stenosis. No aneurysm. Right middle cerebral artery: No occlusion or significant stenosis. No aneurysm. Right posterior cerebral artery: No occlusion or significant stenosis. No aneurysm. Right vertebral artery: No significant stenosis. No occlusion. Left internal carotid artery: Internal carotid is patent with no significant stenosis. No aneurysm. Left anterior cerebral artery: No occlusion or significant stenosis. No aneurysm. Left middle cerebral artery: No occlusion or significant stenosis. No aneurysm. Left posterior cerebral artery: No occlusion. Some stenosis identified.. No aneurysm. Left vertebral artery: Unremarkable as visualized. Basilar artery: No occlusion or significant stenosis. No aneurysm. Sinuses: Sinus disease as previously reported. IMPRESSION: No essential occlusions related to the ambler of [place]. Electronically signed by: Carmen Costello M.D. 10/08/22 19:32 PM Neck CTA 10/08/22 16:44 Exam(s): CTA NECK With Contrast IV Amt: 114ml optiray 320 EXAM: CT Angiography Neck With Intravenous Contrast CLINICAL HISTORY: Reason for exam: neuro deficit, acute stroke suspected. TECHNIQUE: Routine carotid CT angiography protocol was performed with intravenous contrast. NASCET criteria using the distal ICAs for comparison were used for evaluation of stenoses. CTDI is 12.85 mGy and DLP is 409.96 mGy-cm. Automated exposure control was utilized for the study. A dose lowering technique was utilized adhering to the principles of ALARA. MIP reconstructed images were created and reviewed. CONTRAST: Patient received 114ml optiray 320 of IV contrast COMPARISON: None. FINDINGS: VASCULATURE: Right common carotid artery: No significant stenosis. No dissection or occlusion. Right internal carotid artery: Internal carotid is patent with no significant stenosis. No aneurysm. Right vertebral artery: No significant stenosis. No occlusion. Left common carotid artery: No significant stenosis. No occlusion. Left internal carotid artery: Internal carotid is patent with no significant stenosis. No aneurysm. Left vertebral artery: Unremarkable. No occlusion or significant stenosis. No dissection. NECK: Bones/joints: No acute fracture. Sinuses: Sinus disease as previously described. Thyroid: Small low-attenuation focus in left lobe of the thyroid gland. Lung apices: [place] of markings or spiculated opacity measuring 5 mm in the left lung apex. CAROTID STENOSIS REFERENCE USING NASCET CRITERIA: % ICA stenosis = (1 - narrowest ICA diameter/diameter of distal cervical ICA) x 100. Mild - <50% stenosis. Moderate - 50-69% stenosis. Severe - 70-94% stenosis. Near occlusion - 95-99% stenosis. Occluded - 100% stenosis. IMPRESSION: No occlusion or high-grade stenosis. Electronically signed by: Carmen Costello M.D. 10/08/22 19:37 PM Brain MRI 10/09/22 00:22 Exam(s): MRI HEAD W/WO Contrast IV Amt: 7cc gadavist EXAM: MR Head Without and With Intravenous Contrast CLINICAL HISTORY: Reason for exam: stroke like symptoms. TECHNIQUE: Magnetic resonance images of the head/brain without and with intravenous contrast in multiple planes. CONTRAST: Patient received 7cc gadavist of IV contrast COMPARISON: 10/08/2022. FINDINGS: Brain: Moderate to severe generalized brain atrophy. Scattered areas of increased signal within the deep white matter compatible with microangiopathic white matter disease. No restricted diffusion abnormality to suggest acute stroke. No intracranial hemorrhage. Ventricles: Nonspecific ventriculomegaly. Bones/joints: Unremarkable. Soft tissues: Unremarkable. Normal enhancement of intracranial structures following contrast administration with no distinct intracranial lesion. Sinuses: Mucosal thickening involving the bilateral maxillary sinuses with air-fluid level on the left and enhancement concerning for acute on chronic sinusitis. Mucosal thickening of bilateral mastoids and frontal sinuses. Mastoid air cells: Unremarkable as visualized. No mastoid effusion. Orbits: Unremarkable as visualized. IMPRESSION: 1. Moderate to severe generalized brain atrophy along with microangiopathic white matter disease. 2. No acute stroke or intracranial hemorrhage. No enhancing intracranial lesions seen. 3. Sequela pansinusitis as described. Electronically signed by: Fatuma Delatorre MD 10/09/22 03:04 AM Chest X-Ray 10/10/22 07:35 XR chest 1V portable CLINICAL HISTORY: Dyspnea TECHNIQUE: Single frontal radiograph of the chest was obtained. Comparison: Comparison is made to CTA head and neck 10/08/2022 FINDINGS: No lines and tubes are seen. Cardiomegaly is noted. The aortic arch is calcified. Right greater than left airspace opacity is seen. Moderate right and small left pleural effusion. IMPRESSION: Moderate right and small left pleural effusion. Bilateral lower lung airspace opacities likely represent atelectasis with or without superimposed aspiration/pneumonia. ACT 112: Negative or not required by law. Electronically signed by: Frederick Nazario M.D. 10/10/2022 8:06 AM Ordered Studies 10/08/22 16:44 CT angio head w con Stat CT angio neck with con Stat CT head/brain wo con Stat 10/09/22 00:22 MR brain wo/w con Routine Hospital Course (1) Acute radial nerve palsy of left upper extremity: Patient is a 77 yr female who presents with right hand weakness. Right radial nerve palsy of the right upper extremity --MRI Brain:Moderate to severe generalized brain atrophy along with microangiopathic white matter disease. No acute stroke or intracranial hemorrhage. No enhancing intracranial lesions seen. Sequela pansinusitis as described. --Head CTA:No essential occlusions related to the ambler of [place]. --Neck CTA:No occlusion or high-grade stenosis. --CT Head:No acute intracranial process. MRI is more sensitive for ischemia if clinically warranted. --ECHO pending --TSH pending --Appreciate neurology input: Not CVA, Likely right radial nerve palsy Consulted orthotics for right wrist splint Needs follow-up with neurology upon discharge Plan to consider EMG if persistent symptoms after 6 weeks. Acute on Chronic Hyponatremia: Sodium Levels 128>131>134 Appreciate nephrology input Monitor sodium levels Bilateral Pleural Effusion Incidental finding on CXR ? Chronic diastolic Heart Failure --ECHO: Mild concentric LVH. Left ventricle wall motion is normal. Left ventricle systolic function is normal. EF 55 to 60%. Grade 1 diastolic dysfunction Denies any dyspnea, chest pain Saturating well on room air Was started on Lasix 40mg daily Advise to follow up with Cardiology as outpatient Hypokalemia Replete electrolytes as needed Monitor Recent bronchitis and UTI Initially started on doxycycline--developed GI upset Started on Augmentin as outpatient on 10/09/22:-- End date 10/13/2022--Continue H/O moderate late-onset Alzheimer's dementia without behavioral disturbances Monitor for delirium Reorient frequently DM II HbA1C: 7.6 Hold home metformin and glipizide Utilize Insulin per protocol for managing diabetes mellitus Monitor blood sugar levels H/O Myelodysplastic disease: Follows with hematology/oncology. Continue ferrous sulfate. CKD III Cr: 1.2>0.91 Monitor renal function Avoid nephrotoxic agents as able Anemia of chronic kidney disease Continue iron, B12 supplements No acute bleeding issues Monitor hemoglobin DVT Px: Heparin SQ CODE STATUS Full code Disposition [facility] Total Time Total Time Spent Total Time Spent (In Minutes): 54 minutes Discharge Plan Discharge Items Patient Disposition: Transfer Detention Fac Reason For Visit: STROKE-LIKE SYMPTOMS Discharge Diagnosis: Right radial nerve palsy of the right upper extremity Acute on Chronic Hyponatremia Bilateral pleural effusion Hypokalemia Activity: Per Instructions section Exercise/Sports: Wait until after follow-up appointment Non-emergency contact: 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 [employer] Call non-emergency contact if: you have any medication questions, your symptoms worsen, your pain is concerning for you and you have a fever Follow-up/Referrals: Krishna Espinosa DO [Primary Care Provider] - Diet: Heart Healthy Fluids: 1800ml (7 cups) Addtl Attending Provider Instructions: Follow-up with your primary care physician in 1 week Follow-up with your soda dry house operator in 2 to 3 weeks Follow-up with your neurologist in 6 weeks for outpatient EMG if no improvement of your right hand weakness --- Continue to use neutral wrist splint on right upper extremity as recommended by your neurologist. --- Start taking Lasix 40 mg daily along with potassium supplement to help with pleural effusion. --Obtain chest x-ray in 1 week to reassess pleural effusion. Further recommendations as per primary care physician. --Obtain Blood Test (basic metabolic panel) in 1 week for monitoring your sodium, potassium, kidney function. Seek immediate medical attention if your symptoms reoccur or worsen Please take all medications as instructed on discharge list below. Please call if you have any questions or problems. You can reach a [facility] hospitalist on duty at [facility] 24 hours a day by calling [phone] Pending Studies at Discharge: No Stand-Alone Forms: My [facility] Skilled Items Patient informed of condition?: Yes DNR: No Discharge Level of Care: Other Communicable Disease: No Discharge Prognosis: Stable Lines: None Urinary Catheter: No Medications and DC Order Prescriptions: New furosemide [Lasix] 40 mg tablet 40 mg PO DAILY Qty: 14 0RF potassium chloride 10 mEq capsule, extended release 10 meq PO DAILY Qty: 14 0RF Continued metformin 500 mg Tablet 500 mg PO BID glipizide 5 mg tablet extended release 24hr 5 mg PO QAM Rx Instructions: before breakfast famotidine 20 mg tablet 20 mg PO BID Rx Instructions: Start Date 10/05/2022 - End Date 10/15/2022 ipratropium-albuterol 0.5 mg-3 mg(2.5 mg base)/3 mL solution for nebulization 3 ml INHALATION Q4H PRN (Reason: short of breath) Rx Instructions: Start Date 10/03/2022 - End Date 10/12/2022 ondansetron HCl 4 mg tablet 4 mg PO Q6H PRN (Reason: nausea) acetaminophen 325 mg Tablet 325 mg PO Q4H PRN (Reason: Pain) Rx Instructions: for mild pain or temp >100 amlodipine 5 mg Tablet 5 mg PO DAILY guaifenesin [Tussin Mucus-Chest Congestion] 100 mg/5 mL Liquid 200 mg PO Q4H PRN (Reason: Cough) magnesium hydroxide [Milk of Magnesia] 400 mg/5 mL Suspension 30 ml PO DAILY PRN (Reason: No bowel movement in 3 days) cyanocobalamin (vitamin B-12) [Vitamin B-12] 500 mcg Tablet 500 mcg PO QAM bisacodyl [Dulcolax (bisacodyl)] 10 mg Suppository 10 mg IA DAILY PRN (Reason: Constipation) Rx Instructions: If Milk of Magnesia is ineffective ferrous sulfate 325 mg (65 mg iron) Tablet 325 mg PO DAILY Fleet Enema 19-7 gram/118 mL Enema 118 ml IA DAILY PRN (Reason: Constipation) Rx Instructions: If dulcolax isn't effective ammonium lactate 12 % Cream 1 applic TOPICAL BID aspirin 81 mg Tablet 81 mg PO QAM gabapentin 100 mg Capsule 200 mg PO HS gabapentin 100 mg Capsule 100 mg PO QAM amoxicillin-pot clavulanate [Augmentin] 875-125 mg Tablet 1 tab PO BID Rx Instructions: Start Date 10/06/2022 - End Date 10/13/2022 cholecalciferol (vitamin D3) [Vitamin D3] 25 mcg (1,000 unit) Capsule 25 mcg PO QAM diclofenac sodium 1 % Gel 2 g TOPICAL QID PRN (Reason: Pain) Rx Instructions: apply to single elbow, wrist or hand; for hand includes palm/fingers/back of hand Probiotic and Acidophilus 300-250 million cell-mg Capsule 1 cap PO AC calcium acetate 667 mg Tablet 667 mg PO QAM Discharge Orders: Discharge Order (Routine); Ordered 10/10/22 Ordered By: Jerrell Gilmore/Other Patient Handouts: Managing Type 2 Diabetes Admission Data Admit Date/Time: 10/08/22 23:38 Attending Provider: Jerrell Herrera Admit Provider: Tahir Laguerre Primary Care Provider: Krishna Espinosa Other Providers: Tahir Laguerre ; Deedee Villalobos ; Lobo Nayak ; Sandra Phipps ; Malini Park ; Lis Rivas ; Tejal Ospina ; [facility]
--- NOTE | 2022-10-11 13:04 | Coding Query ---
CODING QUERY To promote full compliance with coding requirements relating to patient care, provider participation is requested in all cases of estimator uncertainty. Please assist us with the question(s) below: Coding Question(s): The Neurology Consultation documents acute radial nerve palsy of the left upper extremity, and the Progress Notes from 10/09 through the Discharge Summary document Right radial nerve palsy fo the right upper extremity, and also document Acute radial nerve palsy of the left upper extremity. Due to conflicting documentation, please clarify below, the laterality of the radial nerve palsy: ( x ) Right Upper Extremity ( ) Left Upper Extremity ( ) Right and Left Upper Extremities ( ) Other: Please Specify Physician's Response(s): acute radial nerve palsy of the Right upper extremity Thank you Pily Munoz Principal Diagnosis: "that condition established after study, to be chiefly responsible for occasioning the admission of the patient to the hospital for care." Co-Existing Principal Diagnosis: "when two or more diagnoses equally meet the criteria for principal diagnosis as determined by the circumstances of admission, diagnostic work up, and/or therapy provided, and the Alphabetic Index, Tabular List, or another coding guideline does not provide sequencing direction, any one of the diagnoses may be sequenced first." "When the physician has documented what appears to be a current diagnosis in the body of the record, but has not included the diagnosis in the final diagnostic statement, the physician should be asked whether the diagnosis should be added." (Source [facility] 2 QTR90. p3-4) ELIZABETH
== END 2022-10-10 15:53 | DRG 74 ==
LOC: ED 16:08 → EDINP 23:38 → 1E 10-09 11:13